=== PATIENT | female | born 1960 | race Caucasian/White ===

== ENCOUNTER 2018-10-04 08:26 | Day surgery (SDC) | payer OTHER, MEDICAID, SELFPAY ==
--- NOTE | 2018-10-04 07:28 | PM.PREOP ---
Pre-operative Note Interval Note Pre-op Check: Yes History & Physical Reviewed by Physician Changes: No
[2018-10-04] MEDS: PROPARACAINE 0.5% OPHTH SOL 2 DROPS EYE-OP (09:03)
[2018-10-04] MEDS: CATARACT EYE COMPOUND (10 DROPS/SYRINGE) 3 DROPS EYE-OP (09:09)
[2018-10-04 09:10] VITALS: BMI 32.5
[2018-10-04 09:27] VITALS: BP 134/87; PULSE 105; RESP 17; TEMP 36.3; O2SAT 95
[2018-10-04] MEDS: CHONDROIDTIN/SOD HYALURONATE 1.05 ML SYRINGE INTRAOCULA ×2 (10:14→10:26)
[2018-10-04] MEDS: MOXIFLOXACIN OPHTH DROPS 3 ML BOTTLE 2 DROPS INJ (10:14)
[2018-10-04] MEDS: PHENYLEPHRINE/LIDOCAINE VIAL (OR) 0.2 ML EYE-OP (10:14)
[2018-10-04] MEDS: TRIAMCINOLONE 50 MG/5 ML VIAL INJ (10:14)
[2018-10-04] MEDS: BALANCED SALT IRRIG SOLN NO.2 15 ML IRRIG.SOLN IRR (10:15)
[2018-10-04] MEDS: OFLOXACIN 0.3% OPHTH 5 ML 2 DROPS EYE-RIGHT (10:15)
[2018-10-04] MEDS: TRYPAN BLUE 0.5 ML SYRINGE INJ (10:15)
[2018-10-04] MEDS: HYALURONATE SODIUM 10 MG/ML SYRINGE INJ (10:15)
[2018-10-04] MEDS: NEOMYCIN/POLY/DEX OPHTH OINT 1 APPLIC EYE-RIGHT (10:15)
[2018-10-04] MEDS: LIDOCAINE 2% 4 ML, BUPIVACAINE 0.5% (PF) 4 ML, HYALURONIDASE 150 UNIT INJ (10:16)
[2018-10-04] MEDS: BALANCED SALT IRRIG SOLN NO.2 500 ML, EPINEPHrine 1 MG IRR (10:16)
[2018-10-04] MEDS: LIDOCAINE 1% W/EPI INJ 20 ML INJ (10:17)
[2018-10-04 11:02] VITALS: BP 136/90; PULSE 91; RESP 16; TEMP 36.9; O2SAT 95
--- NOTE | 2018-10-04 11:03 | SUR.PHASEII ---
Dr. Castro and Sebastian aware pt desires to d/c by taxi, permission given per Dr. Cortes.
--- NOTE | 2018-10-04 12:50 | PM.OP.1 ---
Operative Date/Time/Diagnoses Date of procedure: 10/04/18 Time of procedure: 09:45 Procedure & Clinicians Procedure: y Date of service: October 04, 2018 Preoperative diagnoses: 1. Right mature nuclear sclerotic cortical and posterior subcapsular Cataract 2. Asthma 3. Anxiety Postoperative diagnoses: 1. Cataract mature complex surgery removed with the use of capsular dye and Malyugin ring with posterior chamber toric intraocular lens implant. Procedure: Phacoemulsification with posterior chamber intraocular lens implant Surgeon: Annalisa Cortes MD Complications: None Specimen: None Implant: [id number]+16.0 [place] 102 Blood loss: None Anesthesia: Retrobulbar with monitored standby Anesthesiologist: Kishor Castro M.D. Description of procedure: Patient is a female year old with decreased vision due to cataract which is affecting activities of daily living. She wants surgery to improve vision. She has mature cataract due to a delay while she obtained insurance coverage and it now will require use of capsular dye pupil stretching device and she would like implantation FA astigmatism correcting intraocular lens. 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 She was taken to the operating room and given topical proparacaine drops. Indelible ink ramey were placed at the 90 and 180 degree meridian. She was placed on the operating room table and given IV sedation. A retrobulbar block insert consisting of 6 cc of 2% xylocaine without epinephrine mixed half and half with 0.5% Marcaine with 1 cc of hyaluronidase added is placed between the medial and lateral 1/3 of the inferior orbital rim. Lid akinesia is obtain with 1% xylocaine with epinephrine infiltrated along the lid margin. The eye is manually massaged for 30 sec, prepped using Betadine solution, and draped in the usual sterile fashion. Temporal approach was made, a 1 mm side-port incision was made at the 7:30 position. Phenylephrine 1.5% mixed with 1% xylocaine 0.2 cc was placed into the anterior chamber. An air bubble is then placed and Vision blue dye is placed on the anterior lens surface and under the iris. The air was removed. Viscoat followed by Healon was then placed. A 2.6 mm clear incision with a 2.6 mm blade was placed at the 170 degree meridian. A 7.0 Malyugin ring was inspected and opened into the anterior chamber. The iris was then hooked on all 4 quadrants as it had poorly dilated and was floppy. A 360 degree capsulorrhexis style capsulotomy was then performed with a [facility]. Hydrodelineation and hydrodissection were performed. The phacoemulsification unit is introduced, and sculpting notice used to groove the central lens. It is then removed in chopping mode in the anterior chamber due to the capsular fragility.. Epi nucleus is removed with epinuclear mode and irrigation aspiration was used to remove the peripheral cortex. The posterior capsule is polished. A small amount of peripheral cortex was removed after the intraocular lens insertion. The intraocular lens is selected, inspected, power confirmed, and placed in the posterior chamber after measuring the 102 degree meridian and was placed in that meridian. The pupil was not constricted. The wound was stromally hydrated and tested for leaks, there was none and it was left sutureless. Vigamox 0.1 cc was placed into the anterior chamber. Kenalog 0.2 cc was placed in the superior subconjunctival space. A drop of antibiotic and was placed and the eye was patched and shielded. The patient was stable and returned to the recovery room in excellent condition. Dictated by: Annalisa Cortes MD Copy to: [facility] Same procedure as scheduled: Yes
--- NOTE | 2018-10-04 12:59 | P.OP_ITS ---
Operative Date/Time/Diagnoses Date of procedure: 10/04/18 Time of procedure: 09:45 Procedure & Clinicians Procedure: y Date of service: October 04, 2018 Preoperative diagnoses: 1. Right mature nuclear sclerotic cortical and posterior subcapsular Cataract 2. Asthma 3. Anxiety Postoperative diagnoses: 1. Cataract mature complex surgery removed with the use of capsular dye and Malyugin ring with posterior chamber toric intraocular lens implant. Procedure: Phacoemulsification with posterior chamber intraocular lens implant Surgeon: Annalisa Cortes MD Complications: None Specimen: None Implant: ZCT22+16.0 [employer] 102 Blood loss: None Anesthesia: Retrobulbar with monitored standby Anesthesiologist: Kishor Castro M.D. Description of procedure: Patient is a female year old with decreased vision due to cataract which is affecting activities of daily living. She wants surgery to improve vision. She has mature cataract due to a delay while she obtained insurance coverage and it now will require use of capsular dye pupil stretching device and she would like implantation FA astigmatism correcting intraocular lens. 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 She was taken to the operating room and given topical proparacaine drops. Indelible ink ramey were placed at the 90 and 180 degree meridian. She was placed on the operating room table and given IV sedation. A retrobulbar block insert consisting of 6 cc of 2% xylocaine without epinephrine mixed half and half with 0.5% Marcaine with 1 cc of hyaluronidase added is placed between the medial and lateral 1/3 of the inferior orbital rim. Lid akinesia is obtain with 1% xylocaine with epinephrine infiltrated along the lid margin. The eye is manually massaged for 30 sec, prepped using Betadine solution, and draped in the usual sterile fashion. Temporal approach was made, a 1 mm side-port incision was made at the 7:30 position. Phenylephrine 1.5% mixed with 1% xylocaine 0.2 cc was placed into the anterior chamber. An air bubble is then placed and Vision blue dye is placed on the anterior lens surface and under the iris. The air was removed. Viscoat followed by Healon was then placed. A 2.6 mm clear incision with a 2.6 mm blade was placed at the 170 degree meridian. A 7.0 Malyugin ring was inspected and opened into the anterior chamber. The iris was then hooked on all 4 quadrants as it had poorly dilated and was floppy. A 360 degree capsulorrhexis style capsulotomy was then performed with a [facility]stitome needle [facility]. Hydrodelineation and hydrodissection were performed. The phacoemulsification unit is introduced, and sculpting notice used to groove the central lens. It is then removed in chopping mode in the anterior chamber due to the capsular fragility.. Epi nucleus is removed with epinuclear mode and irrigation aspiration was used to remove the peripheral cortex. The posterior capsule is polished. A small amount of peripheral cortex was removed after the intraocular lens insertion. The intraocular lens is selected, inspected, power confirmed, and placed in the posterior chamber after measuring the 102 degree meridian and was placed in that meridian. The pupil was not constricted. The wound was stromally hydrated and tested for leaks, there was none and it was left sutureless. Vigamox 0.1 cc was placed into the anterior chamber. Kenalog 0.2 cc was placed in the superior subconjunctival space. A drop of antibiotic and was placed and the eye was patched and shielded. The patient was stable and returned to the recovery room in excellent condition. Dictated by: Annalisa Cortes MD Copy to: [facility] Same procedure as scheduled: Yes
== END 2018-10-04 11:15 | disposition home or self-care (01) ==
LOC: OR 08:28
PROVIDERS: PCP Nurse Practitioner Family; Visit Provider Ophthalmology
PROC: (CPT 66982; principal; 2018-10-04 09:45)
DX: H25.11 Age-related nuclear cataract, right eye (principal); I10 Essential (primary) hypertension; J45.909 Unspecified asthma, uncomplicated; F41.9 Anxiety disorder, unspecified; H25.041 Posterior subcapsular polar age-related cataract, right eye
CPT/HCPCS: 66982; J0171; J2704; J3301; J3470; V2787

== ENCOUNTER → 2018-10-12 11:53 | Outpatient (CLI) | payer OTHER, MEDICAID, SELFPAY ==
--- NOTE | 2018-10-13 15:52 | PM.PFT.1 ---
Pulmonary Function Test Referral & Results Date Patient Seen: 10/12/18 Requesting provider: Elena Trujillo Indication: Asthma, cough Results: The spirometry demonstrates an FVC of 3.33 L which is 99% of predicted. The FEV1 was measured at 2.39 L which is 92% of predicted. The FEV1/FVC ratio was 72 which is 91% of predicted. Following the administration of bronchodilator there was no appreciable change. Lung volumes show an SVC of 3.47 L which is 112% of predicted. The diffusing capacity was measured at 26.53 which is 109% of predicted. The maximum voluntary ventilation was normal Interpretation: This study demonstrates normal pulmonary function
== END ==
PROVIDERS: PCP Nurse Practitioner Family; Visit Provider Nurse Practitioner Family
DX: J45.30 Mild persistent asthma, uncomplicated (principal); R05 Cough
CPT/HCPCS: 94060; 94726; 94729

== ENCOUNTER 2018-10-18 08:25 | Day surgery (SDC) | payer OTHER, MEDICAID, SELFPAY ==
--- NOTE | 2018-10-17 16:58 | PM.PREOP ---
Pre-operative Note Interval Note Pre-op Check: Yes History & Physical Reviewed by Physician Changes: No
[2018-10-18] MEDS: PROPARACAINE 0.5% OPHTH SOL 2 DROPS EYE-OP ×2 (08:50→10:09)
[2018-10-18 08:51] VITALS: BMI 32.5
[2018-10-18] MEDS: CATARACT EYE COMPOUND (10 DROPS/SYRINGE) 3 DROPS EYE-OP (08:54)
[2018-10-18 08:56] VITALS: BP 124/88; PULSE 96; RESP 15; TEMP 36.7; O2SAT 92
--- NOTE | 2018-10-18 09:57 | SUR.OPER ---
Supine on eye stretcher, head on extension cradle secured with tape. Arms tucked at sides with blanket. Pillow under knees.
[2018-10-18] MEDS: TRYPAN BLUE 0.5 ML SYRINGE INJ (10:02)
[2018-10-18] MEDS: PHENYLEPHRINE/LIDOCAINE VIAL (OR) 0.2 ML EYE-OP (10:03)
[2018-10-18] MEDS: MOXIFLOXACIN OPHTH DROPS 3 ML BOTTLE 2 DROPS INJ (10:04)
[2018-10-18] MEDS: TRIAMCINOLONE 50 MG/5 ML VIAL INJ (10:04)
[2018-10-18] MEDS: BALANCED SALT IRRIG SOLN NO.2 15 ML IRRIG.SOLN IRR (10:04)
[2018-10-18] MEDS: CHONDROIDTIN/SOD HYALURONATE 1.05 ML SYRINGE INTRAOCULA (10:04)
[2018-10-18] MEDS: HYALURONATE SODIUM 10 MG/ML SYRINGE INJ (10:05)
[2018-10-18] MEDS: CARBACHOL 1.5 ML VIAL INJ (10:05)
[2018-10-18] MEDS: NEOMYCIN/POLY/DEX OPHTH OINT 1 APPLIC EYE-LEFT (10:05)
[2018-10-18] MEDS: BALANCED SALT IRRIG SOLN NO.2 500 ML, EPINEPHrine 1 MG IRR (10:06)
[2018-10-18] MEDS: OFLOXACIN 0.3% OPHTH 5 ML 2 DROPS EYE-LEFT (10:06)
[2018-10-18] MEDS: LIDOCAINE 1% W/EPI INJ 20 ML INJ (10:07)
[2018-10-18] MEDS: LIDOCAINE 2% 4 ML, BUPIVACAINE 0.5% (PF) 4 ML, HYALURONIDASE 150 UNIT INJ (10:07)
[2018-10-18 10:35] VITALS: BP 120/78; PULSE 85; RESP 16; TEMP 36.6; O2SAT 96
[2018-10-18 10:50] VITALS: BP 131/72; PULSE 81; RESP 16; TEMP 36.6; O2SAT 97
--- NOTE | 2018-10-18 11:56 | PM.OP.1 ---
Operative Date/Time/Diagnoses Date of procedure: 10/18/18 Time of procedure: 09:57 Procedure & Clinicians Procedure: Preoperative diagnoses: 1. Complex surgery with use of capsular dye. 2. Mature or advanced nuclear sclerotic and cortical cataract with poor visibility of the anterior capsule increasing surgical risks of complications. 3. Astigmatism which she elects to correct with a Toric IOL. 4. Poor pupillary dilation of unknown cause with need for Malyugin ring. Postoperative diagnoses: 1. Complex surgery with use of capsular dye, Malyguin ring and placement of a posterior chamber toric intraocular lens implant. Surgeon: Annalisa Cortes MD Complications: none Specimen: None Implant:[id number]+18.5 Blood loss: None Anesthesia: Retrobulbar with monitored standby. Dictated by: Annalisa Cortes MD Copy to: [facility] Postoperative diagnoses: 1. Cataract removed with use of capsular dye,pupillary retention device with placement of a toric posterior chamber intraocular lens. 2. Astigmatism which she elected to correct with a toric IOL. Procedure: Phacoemulsification with posterior chamber intraocular lens implant, complex with the use of capsular dye Malyugin ring. Surgeon: Annalisa Cortes MD Complications: None Specimen: None Implant:[id number]+18.5 [place] 091. Blood loss: None Anesthesia: Retrobulbar with monitored standby Description of procedure: Patient has presented with decreased vision due to advanced cataract which is affecting activities of daily living. The patient wants surgery to improve vision. The patient was taken to the oerating room. Proparacaine drops were placed and indelible ink ramey were made at the 90 and 180 degree position. The patient was placed on the operating room table, monitored and given IV sedation. A retrobulbar block consisting of 6 cc of 2% xylocaine without epinephrine mixed half and half with 0.5% Marcaine with 1 cc of hyaluronidase added is placed between the medial and lateral 1/3 of the inferior orbital rim. Lid akinesia is obtain with 1% xylocaine with epinephrine infiltrated along the lid margin. The eye is manually massaged for 30 sec, prepped using Betadine solution, and draped in the usual sterile fashion.A temporal approach was made, a 1 mm side-port incision was performed 90 degrees from the planned corneal wound. Phenylephrine 1.5% mixed with 1% xylocaine 0.2 cc was placed into the anterior chamber. An air bubble was placed and Visudyne dye was placed to improve visibility of the anterior capsule. The dye was irrigated out to reduce bubbles. Viscoat followed by Lex was then placed. A 2.6 mm clear incision with a 2.6 mm blade was placed. A Malyugin ring of 7.0 mm was inspected and opened in the anterior chamber.Each quadrant of the iris was sequentially hooked and the device centered in the pupil. A 360 degree capsulorrhexis style capsulotomy was then performed with a cystitome needle on a Healon. Hydrodelineation and hydrodissection were performed. The phacoemulsification unit is introduced, and sculpting notice used to groove the central lens. It is then removed in chopping mode. Epi nucleus is removed with epinuclear mode and irrigation aspiration was used to remove the peripheral cortex. The posterior capsule is polished. The intraocular lens is selected, inspected, power confirmed, and placed in the posterior chamber at the desired meridian and confirmed with multiople markers. The pupil was not constricted. The wound was stromally hydrated and tested for leaks, there was none and was left sutureless. Vigamox 0.1 cc was placed into the anterior chamber. Kenalog 0.2 cc was placed in the superior subconjunctival space. A drop of antibiotic and was placed and the eye was patched and shielded. The patient was stable and returned to the recovery room in excellent condition. Dictated by: Annalisa Cortes MD Copy to: [facility] C Same procedure as scheduled: Yes
--- NOTE | 2018-10-18 12:01 | P.OP_ITS ---
Operative Date/Time/Diagnoses Date of procedure: 10/18/18 Time of procedure: 09:57 Procedure & Clinicians Procedure: Preoperative diagnoses: 1. Complex surgery with use of capsular dye. 2. Mature or advanced nuclear sclerotic and cortical cataract with poor visibility of the anterior capsule increasing surgical risks of complications. 3. Astigmatism which she elects to correct with a Toric IOL. 4. Poor pupillary dilation of unknown cause with need for Malyugin ring. Postoperative diagnoses: 1. Complex surgery with use of capsular dye, Malyguin ring and placement of a posterior chamber toric intraocular lens implant. Surgeon: Annalisa Cortes MD Complications: none Specimen: None Implant:[id number]+18.5 Blood loss: None Anesthesia: Retrobulbar with monitored standby. Dictated by: Annalisa Cortes MD Copy to: [facility] Postoperative diagnoses: 1. Cataract removed with use of capsular dye,pupillary retention device with placement of a toric posterior chamber intraocular lens. 2. Astigmatism which she elected to correct with a toric IOL. Procedure: Phacoemulsification with posterior chamber intraocular lens implant , complex with the use of capsular dye Malyugin ring. Surgeon: Annalisa Cortes MD Complications: None Specimen: None Implant:[id number]+18.5 [place] 091. Blood loss: None Anesthesia: Retrobulbar with monitored standby Description of procedure: Patient has presented with decreased vision due to advanced cataract which is affecting activities of daily living. The patient wants surgery to improve vision. The patient was taken to the oerating room. Proparacaine drops were placed and indelible ink ramey were made at the 90 and 180 degree position. The patient was placed on the operating room table, monitored and given IV sedation. A retrobulbar block consisting of 6 cc of 2% xylocaine without epinephrine mixed half and half with 0.5% Marcaine with 1 cc of hyaluronidase added is placed between the medial and lateral 1/3 of the inferior orbital rim. Lid akinesia is obtain with 1% xylocaine with epinephrine infiltrated along the lid margin. The eye is manually massaged for 30 sec, prepped using Betadine solution, and draped in the usual sterile fashion.A temporal approach was made, a 1 mm side-port incision was performed 90 degrees from the planned corneal wound. Phenylephrine 1.5% mixed with 1% xylocaine 0.2 cc was placed into the anterior chamber. An air bubble was placed and Visudyne dye was placed to improve visibility of the anterior capsule. The dye was irrigated out to reduce bubbles. Viscoat followed by Lex was then placed. A 2.6 mm clear incision with a 2.6 mm blade was placed. A Malyugin ring of 7.0 mm was inspected and opened in the anterior chamber.Each quadrant of the iris was sequentially hooked and the device centered in the pupil. A 360 degree capsulorrhexis style capsulotomy was then performed with a cystitome needle on a Healon. Hydrodelineation and hydrodissection were performed. The phacoemulsification unit is introduced, and sculpting notice used to groove the central lens. It is then removed in chopping mode. Epi nucleus is removed with epinuclear mode and irrigation aspiration was used to remove the peripheral cortex. The posterior capsule is polished. The intraocular lens is selected, inspected, power confirmed, and placed in the posterior chamber at the desired meridian and confirmed with multiople markers. The pupil was not constricted. The wound was stromally hydrated and tested for leaks, there was none and was left sutureless. Vigamox 0.1 cc was placed into the anterior chamber. Kenalog 0.2 cc was placed in the superior subconjunctival space. A drop of antibiotic and was placed and the eye was patched and shielded. The patient was stable and returned to the recovery room in excellent condition. Dictated by: Annalisa Cortes MD Copy to: [facility] Same procedure as scheduled: Yes
--- NOTE | 2018-10-18 12:38 | P.OP.PRE_ITS ---
Pre-operative Note Interval Note Changes: No
--- NOTE | 2018-10-18 12:38 | PM.PREOP ---
Pre-operative Note Interval Note Changes: No
== END 2018-10-18 11:00 | disposition home or self-care (01) ==
LOC: OR 08:26
PROVIDERS: PCP Nurse Practitioner Family; Visit Provider Ophthalmology
PROC: (CPT 66982; principal; 2018-10-18 09:45)
DX: H25.12 Age-related nuclear cataract, left eye (principal); H57.09 Other anomalies of pupillary function; H52.202 Unspecified astigmatism, left eye; I10 Essential (primary) hypertension; J45.909 Unspecified asthma, uncomplicated
CPT/HCPCS: 66982; J0171; J2250; J2704; J3010; J3301; J3470; V2787

== ENCOUNTER → 2018-10-26 11:29 | Outpatient (CLI) | payer OTHER, MEDICAID, SELFPAY ==
--- NOTE | 2018-10-26 | DI.MG.S_ITS ---
BILATERAL DIGITAL SCREENING MAMMOGRAM 3D/2D WITH CAD: 10/26/2018 CLINICAL: Routine screening. Comparison is made to exams dated: 11/17/2016 mammogram, 06/11/2015 mammogram, and 10/24/2013 mammogram - [facility]. The tissue of both breasts is heterogeneously dense. This may lower the sensitivity of mammography. Current study was also evaluated with a Computer Aided Detection (CAD) system. There are benign vascular calcifications in both breasts. No significant masses, calcifications, or other findings are seen in either breast. There has been no significant interval change. IMPRESSION: There is no mammographic evidence of malignancy. A 1 year screening mammogram is recommended. This exam was interpreted at Station ID: [id number]. NOTE: For mammograms, a report in lay terms will be sent to the patient. Approximately 15% of breast malignancies will not be visualized mammographically. In the management of a palpable breast mass, a negative mammogram must not discourage biopsy of a clinically suspicious lesion. Electronically Signed By: Kristian copeland/alicia:10/27/2018 11:19:36 letter sent: Normal Exam ACR BI-RADS Category 2: Benign Finding(s) 3342F
== END ==
PROVIDERS: PCP Nurse Practitioner Family; Visit Provider Nurse Practitioner Family
DX: Z12.31 Encounter for screening mammogram for malignant neoplasm of breast (principal)
CPT/HCPCS: 77063; 77067

== ENCOUNTER → 2019-10-03 12:49 | Outpatient (CLI) | payer OTHER, MEDICAID, SELFPAY ==
--- NOTE | 2019-10-03 | DI.US.S_ITS ---
PROCEDURE: US PELVIC COMPLETE INDICATIONS: FAMILY HISTORY OF MALIGNANT NEOPLASM OF OVARY TECHNIQUE: Real-time scanning was performed of the pelvic organs, with image documentation. Additional endovaginal scanning was necessary due to incomplete visualization of the adnexal and endometrial structures by transabdominal scanning. COMPARISON: None. FINDINGS: Transabdominal scanning: Limited scanning through the kidneys shows no hydronephrosis. No pathologic free abdominal or pelvic fluid. Endovaginal scanning: Uterus: Prior hysterectomy. Ovaries: Right ovary not visualized. Normal left ovary measuring 1.9 x 1.0 x 0.5 cm. IMPRESSION: Normal right ovary and the left ovary is not visualized. Dictated by: Kishor CHARLES Interpreted: Damon Correa MD on 10/03/2019 at 15:34 Approved by: Damon Correa M.D. on 10/03/2019 at 17:20
== END ==
PROVIDERS: PCP Family Medicine; Visit Provider Family Medicine
DX: Z80.41 Family history of malignant neoplasm of ovary (principal); Z90.710 Acquired absence of both cervix and uterus
CPT/HCPCS: 76830; 76856

== ENCOUNTER → 2019-10-30 11:52 | Outpatient (CLI) | payer OTHER, MEDICAID, SELFPAY ==
--- NOTE | 2019-10-30 | DI.MG.S_ITS ---
BILATERAL DIGITAL SCREENING MAMMOGRAM 3D/2D WITH CAD: 10/30/2019 CLINICAL: Routine screening. Comparison is made to exams dated: 10/26/2018 mammogram - [facility], 11/17/2016 mammogram, and 06/11/2015 mammogram - [facility]. The tissue of both breasts is heterogeneously dense. This may lower the sensitivity of mammography. Current study was also evaluated with a Computer Aided Detection (CAD) system. There are benign vascular calcifications in both breasts. No significant masses, calcifications, or other findings are seen in either breast. There has been no significant interval change. IMPRESSION: There is no mammographic evidence of malignancy. A 1 year screening mammogram is recommended. This exam was interpreted at Station ID: [id number]. NOTE: For mammograms, a report in lay terms will be sent to the patient. Approximately 15% of breast malignancies will not be visualized mammographically. In the management of a palpable breast mass, a negative mammogram must not discourage biopsy of a clinically suspicious lesion. Electronically Signed By: You vargas/alicia:10/30/2019 15:04:18 letter sent: Normal Exam ACR BI-RADS Category 2: Benign Finding(s) 3342F
== END ==
PROVIDERS: PCP Family Medicine; Visit Provider Family Medicine
DX: Z12.31 Encounter for screening mammogram for malignant neoplasm of breast (principal)
CPT/HCPCS: 77063; 77067

== ENCOUNTER 2021-10-02 16:12 | Emergency (ER) | payer OTHER, MEDICAID, SELFPAY ==
[2021-10-02] VITALS (15 sets, daily range): BP systolic 99–138; BP diastolic 50–89; PULSE 100–121; RESP 18–25; TEMP 37.2; O2SAT 94–98; BMI 30.9
[2021-10-02 17:09] LABS: Add Manual Diff / Slide Review NO; Basophils Absolute Auto 100 /uL (0-100); Basophils Percent Auto 0.4 % (0-2); Eosinophils Absolute Auto 0 /uL (0-450); Hematocrit 36.3 % (36-46); Hemoglobin 12.3 g/dL (12.0-16.0); Lymphocytes Absolute Auto 1800 /uL (1100-4500); Mean Corpuscular HGB Conc 33.8 % (30-36); Mean Corpuscular Hemoglobin 34.4 PG (26-34); Mean Corpuscular Volume 101.8 fL (80-100); Monocytes Absolute Auto 1300 /uL (0-900); Monocytes Percent Auto 10.2 % (3-14); Neutrophils Absolute Auto 9900 /uL (1500-7000); Neutrophils Percent Auto 75.4 % (50-75); Platelet Count 217 X10^3/uL (150-400); Red Blood Cell Count 3.57 X10^6/uL (4.0-5.2); Red Cell Distribution Width 14.2 % (11.6-14.8); White Blood Cell Count 13.2 X10^3/uL (4.5-11.0)
[2021-10-02 17:17] LABS: INR 1.7 (0.9-1.3); Prothrombin Time 19.1 SECONDS (10.1-12.7)
[2021-10-02 17:19] LABS: PTT Partial Thromboplastin Tim 35 SECONDS (26.4-36.2)
[2021-10-02 17:21] LABS: Alanine Aminotransferase 52 IU/L (<35); Albumin 3.4 g/dL (3.5-5.0); Albumin Globulin Ratio 0.7 (1.0-2.8); Alkaline Phosphatase 148 U/L (38-126); Aspartate Aminotransferase 158 IU/L (14-36); Bilirubin Total 2.4 mg/dL (0.2-1.3); Blood Urea Nitrogen 9 mg/dL (7-17); Calcium 8.3 mg/dL (8.4-10.2); Carbon Dioxide 27 mmol/L (22-32); Chloride 94 mmol/L (98-107); Estimated Glomerular Filt Rate > 60.0 mL/min (>60); Globulin 4.9 g/dL (1.7-4.1); Glucose 134 mg/dL (80-110); HEMOLYSIS < 15 (0-50); Potassium 3.2 mmol/L (3.4-5.1); Sodium 131 mmol/L (137-145); Total Protein 8.3 g/dL (6.3-8.2)
[2021-10-02 17:39] LABS: Appearance Urine UA CLEAR; Bilirubin Urine UA NEGATIVE (NEGATIVE); Color Urine UA YELLOW; Glucose Urine UA NEGATIVE (Negative); Ketones Urine UA 1+ (NEGATIVE); Leukocyte Esterase Urine UA NEGATIVE (NEGATIVE); Nitrite Urine UA NEGATIVE (Negative); Occult Blood Urine UA TRACE-LYSED (Negative); Protein Urine UA TRACE (Negative)
[2021-10-02 17:45] LABS: RBC Urine 0-1/HPF (0-5/HPF); Squamous Epithelial Cell Urine 1-5 /HPF (0-5/HPF); WBC Urine 1-5/HPF (0-5/HPF); pH Urine UA 6.5 (4.5-8.0)
[2021-10-02 17:46] LABS: Bacteria Urine Moderate (10-30); Culture Indicated Urine Specimen Cultured
[2021-10-02] MEDS: PANTOPRAZOLE 40 MG VIAL IV (17:55)
[2021-10-02 18:11] LABS: Ethanol (ETOH) 17 mg/dL
--- NOTE | 2021-10-02 18:11 | ED.GIBLEED ---
HPI - GI Bleed General Chief complaint: GI Bleed Stated complaint: Throwing up blood Time Seen by Provider: 10/02/21 17:46 Source: patient Mode of arrival: Ambulatory Limitations: no limitations History of Present Illness HPI Narrative: 60-year-old female nonsmoker with extensive alcohol history presents with a chief complaint of 24 hours of bright red blood in her vomit. Additionally, she complains of multiple episodes of dark and tarry stools. She denies any fever or chills. She has been noticing an increased size of her abdomen over the past few days as well. Though she has been a heavy drinker for quite some time she has never been diagnosed with liver disease and has no imaging of her liver as far she knows. She drinks upwards of 6-10 alcoholic beverages daily and has had withdrawals in the past. Her last drink was about 24 hours ago when she is feeling a bit shaky and agitated. Related Data Home Medications Medication Instructions Recorded Confirmed albuterol sulfate 90 mcg/actuation 2 puff INHALATION BID 10/04/18 10/18/18 aerosol inhaler ascorbic acid (vitamin C) 500 mg 1,000 mg PO BEDTIME 10/04/18 10/18/18 tablet (Vitamin C) calcium carbonate 500 mg calcium 1,000 mg PO DAILY 10/04/18 10/18/18 (1,250 mg) tablet (Calcium 500) cholecalciferol (vitamin D3) 10 400 unit PO DAILY 10/04/18 10/18/18 mcg (400 unit) tablet (Vitamin D3) hydrochlorothiazide 12.5 mg capsule 12.5 mg PO BEDTIME 10/04/18 10/18/18 multivitamin 1 tab PO DAILY 10/04/18 10/18/18 omega 1-bpt-mob-fish oil 1,000 mg 1,000 mg PO BEDTIME 10/04/18 10/18/18 (120 mg-180 mg) capsule (Fish Oil) acetaminophen 325 mg capsule 325 mg PO Q4H PRN 10/18/18 10/18/18 (Tylenol) Allergies Allergy/AdvReac Type Severity Reaction Status Date / Time No Known Drug Allergies Allergy Verified 10/02/21 16:30 Review of Systems Review of Systems Narrative: GENERAL: Denies chills, fatigue, malaise, fever, sweats. HEENT: Denies sinus pain, ear pain, sore throat, difficulty swallowing, dizziness. RESPIRATORY: Denies dyspnea, cough, wheezing, hemoptysis, sputum. CARDIOVASCULAR: Denies chest pain, palpitations, orthopnea, edema, GASTROINTESTINAL: See HPI : Denies dysuria, frequency, incontinence, hematuria, urinary retention. MUSCULOSKELETAL: denies weakness, joint pain, or bony pain SKIN: Denies rash, skin lesions, or other NEUROLOGIC: Denies weakness, headache, numbness, change in speech, confusion, seizures, incoordination. PSYCHIATRIC: No concerning psychosocial issues. 12 point review of systems is negative except for those stated above Patient History Social History Smoking Status: Never smoker Smoking Status: Never smoker alcohol intake frequency: 3 or more drinks per day Substance Use Type: does not use Exam Narrative Exam Narrative: GENERAL: [60 year old patient appears stated age. Well-developed patient, in mild distress. Agitated, a bit irritable, moderately tremulous HEAD: Atraumatic. Normocephalic. EYES: Pupils equal round and reactive. Extraocular motions intact. No scleral icterus. No injection or drainage. ENT: Nose without bleeding, purulent drainage. Throat without erythema, tonsillar hypertrophy or exudate. Airway patent. NECK: Trachea midline. Non tender CARDIOVASCULAR: Regular rate and rhythm without murmurs, gallops, or rubs. RESPIRATORY: Clear to auscultation. Breath sounds equal bilaterally. No wheezes, rales, or rhonchi. GASTROINTESTINAL: Abdomen soft, moderate generalized ascites, no erythema or warmth EXTREMITIES: No edema or joint tenderness. BACK: Nontender without deformity or crepitance. No flank tenderness. NEURO: AOx3. SKIN: No rash or erythema of visible areas Initial Vital Signs Initial Vital Signs: Vital Signs Temperature 99 F 10/02/21 16:30 Pulse Rate 120 H 10/02/21 16:30 Respiratory Rate 18 10/02/21 16:30 Blood Pressure 138/74 10/02/21 16:30 Pulse Oximetry 96 10/02/21 16:30 Course Course Course Narrative: Michelle-Blatchford Bleeding Score (GBS) from [email or web address] on 10/02/2021 All calculations should be rechecked by clinician prior to use RESULT SUMMARY: 2 points A GBS greater than zero suggests a ?High Risk? GI bleed that is likely to require ?medical intervention?: transfusion, endoscopy, or surgery. A higher GBS also correlated with a higher likelihood of needing intervention (scores >= are associated with >50% risk of needing intervention) INPUTS: Hemoglobin ?> 12.3 g/dL BUN ?> 9 mg/dL Initial systolic BP ?> 129 mm Hg Sex ?> 1 = Female Heart rate >=00 ?> 1 = Yes Melena present ?> 1 = Yes Recent syncope ?> 0 = No Hepatic disease history ?> 0 = No Cardiac failure present ?> 0 = No CIWA-Ar for Alcohol Withdrawal from [employer] on 10/02/2021 All calculations should be rechecked by clinician prior to use RESULT SUMMARY: 15 points Patients with scores >= may require medication for withdrawal. INPUTS: Nausea/vomiting ?> 5 = (More severe symptoms) Tremor ?> 4 = Moderate, with patient's arms extended Paroxysmal sweats ?> 2 = (More severe symptoms) Anxiety ?> 0 = No anxiety, at ease Agitation ?> 4 = Moderately fidgety and restless Tactile disturbances ?> 0 = None Auditory disturbances ?> 0 = Not present Visual disturbances ?> 0 = Not present Headache/fullness in head ?> 0 = Not Present Orientation/clouding of sensorium ?> 0 = Oriented, can do serial additions Orders Ordered: ED Orders 10/02/21 16:45 Urinalysis and Microscopic Stat Urine Culture Stat 10/02/21 16:50 Complete Blood Count AUTO DIFF Stat Comprehensive Metabolic Panel Stat Ethanol (ETOH) Stat Magnesium Stat Partial Thromboplastin Time Stat Prothrombin Time INR Stat Type and Screen Stat 10/02/21 18:43 CT abdomen pelvis w con Stat 10/02/21 18:55 Hemoglobin and Hematocrit Stat 10/02/21 19:33 COVID19 - ADMIT (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 swab/PCR) Stat Octreotide Acetate 500 mcg/ (Sodium Chloride) 101 mls @ 5.05 mls/hr IV CONT NICK; Protocol Last Admin: 10/02/21 19:34 Dose: 25 mcg/hr, 5.05 mls/hr Documented by: KBRYERS Discontinued Medications POTASSIUM CHLORIDE IN WATER (Potassium Cl 10 Meq/100 Ml Janel) 10 meq in 100 mls @ 100 mls/hr IV Q1H NICK Stop: 10/02/21 22:14 Last Admin: 10/02/21 22:13 Dose: 100 mls/hr Documented by: Infusion: 10/02/21 21:49 Dose: 100 mls/hr Documented by: Admin: 10/02/21 20:49 Dose: 100 mls/hr Documented by: Infusion: 10/02/21 19:21 Dose: 100 mls/hr Documented by: Admin: 10/02/21 18:21 Dose: 100 mls/hr Documented by: ALEJANDRA Ceftriaxone Sodium 2,000 mg/ (Sodium Chloride) 100 mls @ 200 mls/hr IV NOW ONE Stop: 10/02/21 18:42 Last Infusion: 10/02/21 21:00 Dose: 0 mls/hr Documented by: Admin: 10/02/21 19:35 Dose: 200 mls/hr Documented by: ALEJANDRA Octreotide Acetate (Octreotide 100 Mcg/Ml Vial) 50 mcg IV NOW ONE Stop: 10/02/21 18:42 Last Admin: 10/02/21 19:33 Dose: 50 mcg Documented by: ALEJANDRA Ondansetron HCl (Ondansetron 4 Mg/2 Ml Inj) 4 mg IV NOW ONE Stop: 10/02/21 19:41 Last Admin: 10/02/21 19:43 Dose: 4 mg Documented by: ALEJANDRA Pantoprazole Sodium (Pantoprazole 40 Mg Vial) 40 mg IV NOW ONE Stop: 10/02/21 17:47 Last Admin: 10/02/21 17:55 Dose: 40 mg Documented by: ALEJANDRA Pantoprazole Sodium (Pantoprazole 40 Mg Vial) 80 mg IV NOW ONE Stop: 10/02/21 18:42 Last Admin: 10/02/21 19:33 Dose: 80 mg Documented by: ALEJANDRA Phenobarbital (Phenobarbital 65 Mg/Ml Vial) 260 mg IV NOW ONE Stop: 10/02/21 18:43 Last Admin: 10/02/21 19:34 Dose: 260 mg Documented by: ALEJANDRA Reevaluation(s) Reevaluation #1: improved symptoms after Phenobarb Consultations Consultation #1: call to Gen Surg ([place]) given high likelihood of varices and our inability to band patient will need transfer Consultation #2: call to GI at [facility] (Krissy), 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, happy with our diagnostics and therapeutic approach the [facility] Consultation #3: 2006 - [facility] Hospitalist paged, happy to accept Vital Signs Vital signs: Vital Signs - 8 hr 10/02/21 16:30 10/02/21 18:01 10/02/21 18:30 Temperature 99 F Pulse Rate 120 H 110 H 111 H Respiratory Rate 18 18 23 Blood Pressure 138/74 129/81 125/58 L Pulse Oximetry 96 94 10/02/21 19:00 10/02/21 19:34 10/02/21 19:35 Temperature Pulse Rate 115 H 115 H 115 H Respiratory Rate 22 23 Blood Pressure 115/53 L 132/70 Pulse Oximetry 95 98 98 10/02/21 20:18 10/02/21 20:20 10/02/21 20:30 Temperature Pulse Rate 121 H 118 H 112 H Respiratory Rate 25 H 24 Blood Pressure 115/89 101/57 L Pulse Oximetry MDM - GI Bleed Lab Data Result diagrams: 10/02/21 18:55 10/02/21 16:50 Labs: Lab Results 10/02/21 10/02/21 10/02/21 Range/Units 16:45 16:50 16:50 WBC 13.2 H (4.5-11.0) X10^3/uL RBC 3.57 L (4.0-5.2) X10^6/uL Hgb 12.3 (12.0-16.0) g/dL Hct 36.3 (36-46) % MCV 101.8 H (80-100) fL MCH 34.4 H (26-34) PG MCHC 33.8 (30-36) % RDW 14.2 (11.6-14.8) % Plt Count 217 (150-400) X10^3/uL Neut % (Auto) 75.4 H (50-75) % Lymph % (Auto) 14.0 L (25-40) % Richardson % (Auto) 10.2 (3-14) % Eos % (Auto) 0.0 L (2-4) % Baso % (Auto) 0.4 (0-2) % Neut # (Auto) 9900 H (3205-6833) /uL Lymph # (Auto) 1800 (7525-1978) /uL Richardson # (Auto) 1300 H (0-900) /uL Eos # (Auto) 0 (0-450) /uL Baso # (Auto) 100 (0-100) /uL PT 19.1 H (10.1-12.7) SECONDS INR 1.7 H (0.9-1.3) APTT 35 (26.4-36.2) SECONDS Sodium (137-145) mmol/L Potassium (3.4-5.1) mmol/L Chloride (98-107) mmol/L Carbon Dioxide (22-32) mmol/L BUN (7-17) mg/dL Creatinine (0.52-1.04) mg/dL Estimated GFR (>60) mL/min BUN/Creatinine Ratio (6-22) Glucose (80-110) mg/dL Calcium (8.4-10.2) mg/dL Magnesium (1.6-2.3) mg/dL Total Bilirubin (0.2-1.3) mg/dL AST (14-36) IU/L ALT (<35) IU/L Alkaline Phosphatase (38-126) U/L Total Protein (6.3-8.2) g/dL Albumin (3.5-5.0) g/dL Globulin (1.7-4.1) g/dL Albumin/Globulin Ratio (1.0-2.8) Urine Color Yellow Urine Appearance Clear Urine pH 6.5 (4.5-8.0) Ur Specific Gilman 1.010 (1.000-1.035) Urine Protein Trace H (Negative) Urine Glucose (UA) Negative (Negative) g/dL Urine Ketones 1+ H (NEGATIVE) Urine Occult Blood Trace-lysed (Negative) Urine Nitrate Negative (Negative) Urine Bilirubin Negative (NEGATIVE) Urine Urobilinogen 4.0 H (0.2) E.U./dL Ur Leukocyte Esterase Negative (NEGATIVE) Urine RBC 0-1/hpf (0-5/HPF) Urine WBC 1-5/hpf (0-5/HPF) Ur Squamous Epith Cells 1-5 /hpf (0-5/HPF) Urine Bacteria Moderate (10-30) H (None) Ur Culture Indicated? Specimen cultured Ethyl Alcohol ( - 10) mg/dL SARS-CoV-2 (PCR) (Negative) Blood Type Antibody Screen 10/02/21 10/02/21 10/02/21 Range/Units 16:50 16:50 16:50 WBC (4.5-11.0) X10^3/uL RBC (4.0-5.2) X10^6/uL Hgb (12.0-16.0) g/dL Hct (36-46) % MCV (80-100) fL MCH (26-34) PG MCHC (30-36) % RDW (11.6-14.8) % Plt Count (150-400) X10^3/uL Neut % (Auto) (50-75) % Lymph % (Auto) (25-40) % Richardson % (Auto) (3-14) % Eos % (Auto) (2-4) % Baso % (Auto) (0-2) % Neut # (Auto) (1793-9804) /uL Lymph # (Auto) (9250-9650) /uL Richardson # (Auto) (0-900) /uL Eos # (Auto) (0-450) /uL Baso # (Auto) (0-100) /uL PT (10.1-12.7) SECONDS INR (0.9-1.3) APTT (26.4-36.2) SECONDS Sodium 131 L (137-145) mmol/L Potassium 3.2 L (3.4-5.1) mmol/L Chloride 94 L (98-107) mmol/L Carbon Dioxide 27 (22-32) mmol/L BUN 9 (7-17) mg/dL Creatinine 0.36 L (0.52-1.04) mg/dL Estimated GFR > 60.0 (>60) mL/min BUN/Creatinine Ratio 25.0 H (6-22) Glucose 134 H (80-110) mg/dL Calcium 8.3 L (8.4-10.2) mg/dL Magnesium (1.6-2.3) mg/dL Total Bilirubin 2.4 H (0.2-1.3) mg/dL AST 158 H (14-36) IU/L ALT 52 H (<35) IU/L Alkaline Phosphatase 148 H (38-126) U/L Total Protein 8.3 H (6.3-8.2) g/dL Albumin 3.4 L (3.5-5.0) g/dL Globulin 4.9 H (1.7-4.1) g/dL Albumin/Globulin Ratio 0.7 L (1.0-2.8) Urine Color Urine Appearance Urine pH (4.5-8.0) Ur Specific Gilman (1.000-1.035) Urine Protein (Negative) Urine Glucose (UA) (Negative) g/dL Urine Ketones (NEGATIVE) Urine Occult Blood (Negative) Urine Nitrate (Negative) Urine Bilirubin (NEGATIVE) Urine Urobilinogen (0.2) E.U./dL Ur Leukocyte Esterase (NEGATIVE) Urine RBC (0-5/HPF) Urine WBC (0-5/HPF) Ur Squamous Epith Cells (0-5/HPF) Urine Bacteria (None) Ur Culture Indicated? Ethyl Alcohol 17 H ( - 10) mg/dL SARS-CoV-2 (PCR) (Negative) Blood Type A Positive Antibody Screen Negative 10/02/21 10/02/21 10/02/21 Range/Units 16:50 18:55 19:33 WBC (4.5-11.0) X10^3/uL RBC (4.0-5.2) X10^6/uL Hgb 12.1 (12.0-16.0) g/dL Hct 35.6 L (36-46) % MCV (80-100) fL MCH (26-34) PG MCHC (30-36) % RDW (11.6-14.8) % Plt Count (150-400) X10^3/uL Neut % (Auto) (50-75) % Lymph % (Auto) (25-40) % Richardson % (Auto) (3-14) % Eos % (Auto) (2-4) % Baso % (Auto) (0-2) % Neut # (Auto) (7176-9175) /uL Lymph # (Auto) (0456-3686) /uL Richardson # (Auto) (0-900) /uL Eos # (Auto) (0-450) /uL Baso # (Auto) (0-100) /uL PT (10.1-12.7) SECONDS INR (0.9-1.3) APTT (26.4-36.2) SECONDS Sodium (137-145) mmol/L Potassium (3.4-5.1) mmol/L Chloride (98-107) mmol/L Carbon Dioxide (22-32) mmol/L BUN (7-17) mg/dL Creatinine (0.52-1.04) mg/dL Estimated GFR (>60) mL/min BUN/Creatinine Ratio (6-22) Glucose (80-110) mg/dL Calcium (8.4-10.2) mg/dL Magnesium 1.8 (1.6-2.3) mg/dL Total Bilirubin (0.2-1.3) mg/dL AST (14-36) IU/L ALT (<35) IU/L Alkaline Phosphatase (38-126) U/L Total Protein (6.3-8.2) g/dL Albumin (3.5-5.0) g/dL Globulin (1.7-4.1) g/dL Albumin/Globulin Ratio (1.0-2.8) Urine Color Urine Appearance Urine pH (4.5-8.0) Ur Specific Gilman (1.000-1.035) Urine Protein (Negative) Urine Glucose (UA) (Negative) g/dL Urine Ketones (NEGATIVE) Urine Occult Blood (Negative) Urine Nitrate (Negative) Urine Bilirubin (NEGATIVE) Urine Urobilinogen (0.2) E.U./dL Ur Leukocyte Esterase (NEGATIVE) Urine RBC (0-5/HPF) Urine WBC (0-5/HPF) Ur Squamous Epith Cells (0-5/HPF) Urine Bacteria (None) Ur Culture Indicated? Ethyl Alcohol ( - 10) mg/dL SARS-CoV-2 (PCR) Negative (Negative) Blood Type Antibody Screen Imaging Data CT scan - abdomen/pelvis: Radiologist's Impression: Therese Carbajal??60??F??1960 ? Allergy/Adv: No Known Drug Allergies (More??) Close Abdomen/Pelvis CT (Signed) Ezequiel Talamantes - 10/02/21 Mammogram Screening (Signed) You Tellez - 10/30/19 Pelvis Ultrasound (Signed) Damon Correa - 10/03/19 Mammogram Screening (Signed) Kristian López - 10/26/18 Launch?[address] [address] [address] Scan Report Signed Patient: Therese Carbajal MR#: [id number] : 1960 Acct:[id number] Age/Sex: 60 / F Date of Service: 10/02/21 Loc: ED Accession Number: [id number] ?? Procedure: CT abdomen pelvis w con Ordering Provider: Richard Vigil D.O. PROCEDURE:? CT ABDOMEN PELVIS W CON ? INDICATIONS:? abdominal pain, liver history ? TECHNIQUE:? After the administration of intravenous contrast, axial sections acquired from the lung bases to the pubic symphysis.? Coronal and sagittal reformats were performed.? For radiation dose reduction, the following was used:? automated exposure control, adjustment of mA and/or kV according to patient size.? ? COMPARISON:? None. ? FINDINGS: ABDOMEN:? Lung bases:? Bibasilar scarring/atelectasis without focal consolidation. Heart:? No pericardial effusion. Normal in size.? ? Liver:? Cirrhosis of the liver is seen.? There is diffuse heterogeneous appearance of the parenchyma without definite focal lesion however confluent or diffuse metastatic/neoplastic lesions cannot be excluded.? Recanalization of the umbilical vein Gallbladder:? Mildly distended.? No radiopaque calculi seen. Bile ducts: Normal. Pancreas: Normal.? Spleen:? Borderline enlarged.? There are perisplenic varices Adrenals: Normal. Kidneys and Ureters:? Normal. Stomach and duodenum:? Small hiatal hernia.? There are numerous gastrohepatic varices.? Gastroesophageal varices also seen. Bowel:? No evidence of bowel obstruction.? There is scattered colonic diverticula without definite focal diverticulitis. Other:? Diffuse moderate ascites Abdominal nodes:? Normal. Aorta and IVC: Normal in size.? ? Ventral wall: Normal. ? PELVIS:? ? Bladder and reproductive: Unremarkable.? Inguinal region: No hernia.? Pelvic nodes: Normal.? ? Bones:? No suspicious bony lesions.? No vertebral body compression fractures. Diffuse spondylytic changes and facet disease. ? ? IMPRESSION: ? Cirrhosis of the liver.? Numerous varices in mild splenomegaly suggesting portal venous hypertension.? Ill-defined hypoattenuating foci throughout the liver which could reflect advanced parenchymal disease/regenerative or siderotic nodules, however cannot exclude confluent metastatic or neoplastic lesions.? Further evaluation with liver protocol contrast enhanced MRI could be performed as clinically warranted. ? Distention of the gallbladder although no radiopaque gallstones identified.? This finding technically indeterminate and further evaluation with ultrasound could be performed as clinically necessary.? Please correlate with LFTs. ? Moderate ascites ? Additional chronic and incidental findings as above.? ? ? Dictated by: Ezequiel Talamantes M.D. on 10/02/2021 at 19:43 ? ? Approved by: Ezequiel Talamantes M.D. on 10/02/2021 at 19:49 ? Critical Care Time Critical Care Time Critical Care Time: Yes Total Critical Care Time: 35 Attestation: The high probability of a clinically significant, sudden or life threatening deterioration of the [GI] system(s) required my full and direct attention, intervention and personal management. The aggregate critical care time was [35] minutes. This time is in addition to time spent performing reported procedures but includes the following: [x] Data Review and interpretation [x] Patient assessment and monitoring of vital signs [x] Documentation x[] Medication orders and management Discharge Plan Departure Patient Disposition: [facility] Clinical Impression: Upper gastrointestinal hemorrhage, Alcohol withdrawal Prescriptions: No Action multivitamin Tablet 1 tab PO DAILY 0RF calcium carbonate [Calcium 500] 500 mg calcium (1,250 mg) Tablet 1,000 mg PO DAILY 0RF ascorbic acid (vitamin C) [Vitamin C] 500 mg Tablet 1,000 mg PO BEDTIME 0RF hydrochlorothiazide 12.5 mg Capsule 12.5 mg PO BEDTIME 0RF albuterol sulfate 90 mcg/actuation Hfa Aerosol Inhaler 2 puff INHALATION BID 0RF cholecalciferol (vitamin D3) [Vitamin D3] 400 unit Tablet 400 unit PO DAILY 0RF omega 2-zpk-pmd-fish oil [Fish Oil] 1,000 mg (120 mg-180 mg) Capsule 1,000 mg PO BEDTIME 0RF acetaminophen [Tylenol] 325 mg Capsule 325 mg PO Q4H PRN (Reason: Pain (Scale Score 1-3)) 0RF Referrals: Simon Bowen MD [Primary Care Provider] -
[2021-10-02] MEDS: POTASSIUM CHLORIDE IN WATER 10 MEQ/100 ML PIGGYBACK 100 MEQ IV ×4 (18:21→23:36)
[2021-10-02 18:40] LABS: Magnesium 1.8 mg/dL (1.6-2.3)
--- NOTE | 2021-10-02 18:43 | DI.CT.S_ITS ---
PROCEDURE: CT ABDOMEN PELVIS W CON INDICATIONS: abdominal pain, liver history TECHNIQUE: After the administration of intravenous contrast, axial sections acquired from the lung bases to the pubic symphysis. Coronal and sagittal reformats were performed. For radiation dose reduction, the following was used: automated exposure control, adjustment of mA and/or kV according to patient size. COMPARISON: None. FINDINGS: ABDOMEN: Lung bases: Bibasilar scarring/atelectasis without focal consolidation. Heart: No pericardial effusion. Normal in size. Liver: Cirrhosis of the liver is seen. There is diffuse heterogeneous appearance of the parenchyma without definite focal lesion however confluent or diffuse metastatic/neoplastic lesions cannot be excluded. Recanalization of the umbilical vein Gallbladder: Mildly distended. No radiopaque calculi seen. Bile ducts: Normal. Pancreas: Normal. Spleen: Borderline enlarged. There are perisplenic varices Adrenals: Normal. Kidneys and Ureters: Normal. Stomach and duodenum: Small hiatal hernia. There are numerous gastrohepatic varices. Gastroesophageal varices also seen. Bowel: No evidence of bowel obstruction. There is scattered colonic diverticula without definite focal diverticulitis. Other: Diffuse moderate ascites Abdominal nodes: Normal. Aorta and IVC: Normal in size. Ventral wall: Normal. PELVIS: Bladder and reproductive: Unremarkable. Inguinal region: No hernia. Pelvic nodes: Normal. Bones: No suspicious bony lesions. No vertebral body compression fractures. Diffuse spondylytic changes and facet disease. IMPRESSION: Cirrhosis of the liver. Numerous varices in mild splenomegaly suggesting portal venous hypertension. Ill-defined hypoattenuating foci throughout the liver which could reflect advanced parenchymal disease/regenerative or siderotic nodules, however cannot exclude confluent metastatic or neoplastic lesions. Further evaluation with liver protocol contrast enhanced MRI could be performed as clinically warranted. Distention of the gallbladder although no radiopaque gallstones identified. This finding technically indeterminate and further evaluation with ultrasound could be performed as clinically necessary. Please correlate with LFTs. Moderate ascites Additional chronic and incidental findings as above. Dictated by: Ezequiel Talamantes M.D. on 10/02/2021 at 19:43 Approved by: Ezequiel Talamantes M.D. on 10/02/2021 at 19:49
[2021-10-02 19:04] LABS: Hematocrit 35.6 % (36-46); Hemoglobin 12.1 g/dL (12.0-16.0)
[2021-10-02] MEDS: PANTOPRAZOLE 40 MG VIAL 80 MG IV (19:33)
[2021-10-02] MEDS: OCTREOTIDE 100 MCG/ML VIAL 50 MCG IV (19:33)
[2021-10-02] MEDS: PHENobarbital 65 MG/ML VIAL 260 MG IV (19:34)
[2021-10-02] MEDS: OCTREOTIDE 500 MCG in SODIUM CHLORIDE 0.9% 100 ML 5.05 ML IV (19:34)
[2021-10-02] MEDS: cefTRIAXone 2,000 MG in SODIUM CHLORIDE 0.9% 100 ML 200 ML IV (19:35)
[2021-10-02] MEDS: ONDANSETRON 4 MG/2 ML INJ IV (19:43)
[2021-10-02 20:31] LABS: COVID19 - ADMIT (NP swab/PCR) Negative (Negative)
[2021-10-03] VITALS: BP 94/50; PULSE 97; RESP 18
[2021-10-03 00:30] VITALS: BP 103/63; PULSE 104; RESP 31
== END 2021-10-03 02:10 | disposition short-term general hospital (02) ==
PROVIDERS: Emergency Medicine; Emergency Provider Emergency Medicine; PCP Family Medicine
DX: K92.0 Hematemesis (principal); F10.239 Alcohol dependence with withdrawal, unspecified; Y90.0 Blood alcohol level of less than 20 mg/100 ml; Z20.822 Contact with and (suspected) exposure to COVID-19
CPT/HCPCS: 36415; 74177; 80053; 80320; 81001; 83735; 85014; 85018; 85025; 85610; 85730; 86850; 86900; 86901; 87086; 87635; 96365; 96366; 96367; 96368; 96375; 96376; 99284; 99285; C9803; C9113; J0696; J2354; J2405; J2560; Q9967

== ENCOUNTER → 2021-10-28 09:57 | Outpatient (CLI) | payer OTHER, MEDICAID, SELFPAY ==
[2021-10-28 19:43] LABS: Add Manual Diff / Slide Review NO; Basophils Absolute Auto 0 /uL (0-100); Basophils Percent Auto 0.6 % (0-2); Eosinophils Absolute Auto 0 /uL (0-450); Eosinophils Percent Auto 0.5 % (2-4); Hematocrit 36.2 % (36-46); Hemoglobin 12.5 g/dL (12.0-16.0); Lymphocytes Absolute Auto 900 /uL (1100-4500); Lymphocytes Percent Auto 15.5 % (25-40); Mean Corpuscular HGB Conc 34.5 % (30-36); Mean Corpuscular Hemoglobin 34.4 PG (26-34); Mean Corpuscular Volume 99.6 fL (80-100); Monocytes Absolute Auto 600 /uL (0-900); Monocytes Percent Auto 10.3 % (3-14); Neutrophils Absolute Auto 4100 /uL (1500-7000); Neutrophils Percent Auto 73.1 % (50-75); Platelet Count 214 X10^3/uL (150-400); Red Blood Cell Count 3.63 X10^6/uL (4.0-5.2); Red Cell Distribution Width 13.8 % (11.6-14.8); White Blood Cell Count 5.5 X10^3/uL (4.5-11.0)
[2021-10-28 19:47] LABS: Alanine Aminotransferase 98 IU/L (<35); Albumin Globulin Ratio 0.8 (1.0-2.8); Alkaline Phosphatase 109 U/L (38-126); Aspartate Aminotransferase 257 IU/L (14-36); BUN Creatinine Ratio 17.4 (6-22); Blood Urea Nitrogen 8 mg/dL (7-17); Calcium 9.6 mg/dL (8.4-10.2); Carbon Dioxide 28 mmol/L (22-32); Chloride 98 mmol/L (98-107); Cholesterol 220 mg/dL (140-199); Estimated Glomerular Filt Rate > 60.0 mL/min (>60); Gamma Glutamyl Transpeptidase 258 U/L (12-43); Globulin 5.1 g/dL (1.7-4.1); Glucose 127 mg/dL (80-110); HDL Cholesterol 20 mg/dL (40-60); HEMOLYSIS 44 (0-50); LDL Cholesterol Calculated 175 mg/dL (<100); Potassium 3.4 mmol/L (3.4-5.1); Sodium 137 mmol/L (137-145); Total Protein 9.1 g/dL (6.3-8.2); Triglycerides 127 mg/dL (35-150)
[2021-10-28 20:49] LABS: Folate 9.7 ng/mL (2.76-20.0); Vitamin B12 802 pg/mL (239-931)
== END ==
PROVIDERS: PCP Family Medicine; Visit Provider Physician Assistant Medical
DX: E66.9 Obesity, unspecified (principal); R03.0 Elevated blood-pressure reading, without diagnosis of hypertension; R74.8 Abnormal levels of other serum enzymes; D64.9 Anemia, unspecified; K21.01 Gastro-esophageal reflux disease with esophagitis, with bleeding; R79.89 Other specified abnormal findings of blood chemistry
CPT/HCPCS: 80053; 80061; 82306; 82607; 82746; 82977; 85025; 87522

== ENCOUNTER → 2021-11-18 13:11 | Outpatient (CLI) | payer OTHER, MEDICAID, SELFPAY ==
[2021-11-18 19:06] LABS: Add Manual Diff / Slide Review NO; Basophils Absolute Auto 0 /uL (0-100); Basophils Percent Auto 0.9 % (0-2); Eosinophils Absolute Auto 0 /uL (0-450); Eosinophils Percent Auto 0.4 % (2-4); Hematocrit 37.3 % (36-46); Hemoglobin 12.7 g/dL (12.0-16.0); Lymphocytes Absolute Auto 900 /uL (1100-4500); Lymphocytes Percent Auto 20.6 % (25-40); Mean Corpuscular Hemoglobin 32.3 PG (26-34); Monocytes Absolute Auto 400 /uL (0-900); Monocytes Percent Auto 8.9 % (3-14); Neutrophils Absolute Auto 3000 /uL (1500-7000); Neutrophils Percent Auto 69.2 % (50-75); Platelet Count 151 X10^3/uL (150-400); Red Blood Cell Count 3.93 X10^6/uL (4.0-5.2); Red Cell Distribution Width 13.2 % (11.6-14.8); White Blood Cell Count 4.4 X10^3/uL (4.5-11.0)
[2021-11-18 19:25] LABS: Alanine Aminotransferase 65 IU/L (<35); Albumin 3.9 g/dL (3.5-5.0); Albumin Globulin Ratio 0.8 (1.0-2.8); Alkaline Phosphatase 93 U/L (38-126); Aspartate Aminotransferase 109 IU/L (14-36); BUN Creatinine Ratio 17.2 (6-22); Bilirubin Total 1.4 mg/dL (0.2-1.3); Blood Urea Nitrogen 10 mg/dL (7-17); Calcium 9.7 mg/dL (8.4-10.2); Carbon Dioxide 24 mmol/L (22-32); Chloride 100 mmol/L (98-107); Estimated Glomerular Filt Rate > 60.0 mL/min (>60); Gamma Glutamyl Transpeptidase 174 U/L (12-43); Globulin 4.8 g/dL (1.7-4.1); Glucose 148 mg/dL (80-110); HEMOLYSIS < 15 (0-50); Potassium 3.8 mmol/L (3.4-5.1); Sodium 136 mmol/L (137-145); Total Protein 8.7 g/dL (6.3-8.2)
== END ==
PROVIDERS: PCP Family Medicine; Visit Provider Physician Assistant Medical
DX: G62.9 Polyneuropathy, unspecified (principal); I10 Essential (primary) hypertension; R03.0 Elevated blood-pressure reading, without diagnosis of hypertension; R74.8 Abnormal levels of other serum enzymes
CPT/HCPCS: 80053; 82977; 85025

== ENCOUNTER → 2021-12-11 11:35 | Outpatient (CLI) | payer OTHER, MEDICAID, SELFPAY ==
[2021-12-11 19:33] LABS: Add Manual Diff / Slide Review NO; Basophils Absolute Auto 0 /uL (0-100); Basophils Percent Auto 0.6 % (0-2); Eosinophils Absolute Auto 0 /uL (0-450); Eosinophils Percent Auto 1.1 % (2-4); Hematocrit 36.4 % (36-46); Hemoglobin 12.4 g/dL (12.0-16.0); Lymphocytes Absolute Auto 1000 /uL (1100-4500); Lymphocytes Percent Auto 25.7 % (25-40); Mean Corpuscular HGB Conc 34.1 % (30-36); Mean Corpuscular Hemoglobin 31.2 PG (26-34); Mean Corpuscular Volume 91.5 fL (80-100); Monocytes Absolute Auto 400 /uL (0-900); Monocytes Percent Auto 9.5 % (3-14); Neutrophils Absolute Auto 2600 /uL (1500-7000); Neutrophils Percent Auto 63.1 % (50-75); Platelet Count 147 X10^3/uL (150-400); Red Blood Cell Count 3.97 X10^6/uL (4.0-5.2); Red Cell Distribution Width 13.2 % (11.6-14.8)
[2021-12-11 19:43] LABS: Alanine Aminotransferase 41 IU/L (<35); Albumin 3.7 g/dL (3.5-5.0); Albumin Globulin Ratio 0.8 (1.0-2.8); Alkaline Phosphatase 109 U/L (38-126); Aspartate Aminotransferase 72 IU/L (14-36); BUN Creatinine Ratio 16.3 (6-22); Blood Urea Nitrogen 8 mg/dL (7-17); Calcium 9.4 mg/dL (8.4-10.2); Carbon Dioxide 25 mmol/L (22-32); Chloride 105 mmol/L (98-107); Estimated Glomerular Filt Rate > 60.0 mL/min (>60); Gamma Glutamyl Transpeptidase 174 U/L (12-43); Globulin 4.4 g/dL (1.7-4.1); Glucose 108 mg/dL (80-110); HEMOLYSIS < 15 (0-50); Sodium 141 mmol/L (137-145); Total Protein 8.1 g/dL (6.3-8.2)
== END ==
PROVIDERS: PCP Family Medicine; Visit Provider Physician Assistant Medical
DX: K25.9 Gastric ulcer, unspecified as acute or chronic, without hemorrhage or perforation (principal); K74.60 Unspecified cirrhosis of liver; K76.9 Liver disease, unspecified; R73.9 Hyperglycemia, unspecified
CPT/HCPCS: 80053; 82977; 83036; 85025

== ENCOUNTER → 2022-01-26 07:59 | Outpatient (CLI) | payer OTHER, MEDICAID, SELFPAY ==
[2022-01-26 20:23] LABS: COVID19 - ORCAS (NP or Nasal) Negative (Negative)
== END ==
PROVIDERS: PCP Family Medicine; Visit Provider Physician Assistant
DX: Z01.812 Encounter for preprocedural laboratory examination (principal); Z20.822 Contact with and (suspected) exposure to COVID-19
CPT/HCPCS: C9803; U0003

== ENCOUNTER → 2022-02-09 13:36 | Outpatient (CLI) | payer OTHER, MEDICAID, SELFPAY ==
[2022-02-09 19:06] LABS: Add Manual Diff / Slide Review NO; Basophils Absolute Auto 0 /uL (0-100); Basophils Percent Auto 1.2 % (0-2); Eosinophils Absolute Auto 0 /uL (0-450); Hematocrit 38.2 % (36-46); Hemoglobin 12.8 g/dL (12.0-16.0); Lymphocytes Absolute Auto 900 /uL (1100-4500); Lymphocytes Percent Auto 23.9 % (25-40); Mean Corpuscular HGB Conc 33.3 % (30-36); Mean Corpuscular Hemoglobin 29.8 PG (26-34); Mean Corpuscular Volume 89.3 fL (80-100); Monocytes Absolute Auto 400 /uL (0-900); Monocytes Percent Auto 10.8 % (3-14); Neutrophils Absolute Auto 2400 /uL (1500-7000); Neutrophils Percent Auto 63.1 % (50-75); Platelet Count 119 X10^3/uL (150-400); Red Blood Cell Count 4.28 X10^6/uL (4.0-5.2); Red Cell Distribution Width 15.7 % (11.6-14.8); White Blood Cell Count 3.9 X10^3/uL (4.5-11.0)
[2022-02-09 19:11] LABS: Alanine Aminotransferase 40 IU/L (<35); Albumin 4.1 g/dL (3.5-5.0); Alkaline Phosphatase 131 U/L (38-126); Aspartate Aminotransferase 64 IU/L (14-36); BUN Creatinine Ratio 18.4 (6-22); Bilirubin Total 0.8 mg/dL (0.2-1.3); Blood Urea Nitrogen 9 mg/dL (7-17); Calcium 9.6 mg/dL (8.4-10.2); Carbon Dioxide 23 mmol/L (22-32); Chloride 104 mmol/L (98-107); Estimated Glomerular Filt Rate > 60.0 mL/min (>60); Gamma Glutamyl Transpeptidase 165 U/L (12-43); Globulin 4.3 g/dL (1.7-4.1); Glucose 111 mg/dL (80-110); HEMOLYSIS < 15 (0-50); Potassium 3.9 mmol/L (3.4-5.1); Sodium 139 mmol/L (137-145); Total Protein 8.4 g/dL (6.3-8.2)
[2022-02-09 19:31] LABS: Free T3, Triiodothyronine Free 4.08 pg/mL (2.77-5.27)
[2022-02-09 19:45] LABS: TSH w/ Reflex to FT4 1.15 uIU/mL (0.47-4.68)
[2022-02-09 20:14] LABS: Ammonia (NH3) 10 umol/L (9-30)
== END ==
PROVIDERS: PCP Family Medicine; Visit Provider Physician Assistant Medical
DX: K74.60 Unspecified cirrhosis of liver (principal); K76.9 Liver disease, unspecified; L65.9 Nonscarring hair loss, unspecified
CPT/HCPCS: 80053; 82140; 82977; 84443; 84481; 85025

== ENCOUNTER → 2022-03-15 16:31 | Outpatient (CLI) | payer OTHER, MEDICAID, SELFPAY ==
--- NOTE | 2022-03-15 16:34 | DI.MG.S_ITS ---
BILATERAL DIGITAL SCREENING MAMMOGRAM 3D/2D WITH CAD: 03/15/2022 CLINICAL: Routine screening. Comparison is made to exams dated: 10/30/2019 mammogram, 10/26/2018 mammogram - [facility], and 11/17/2016 mammogram - [facility]. The tissue of both breasts is heterogeneously dense. This may lower the sensitivity of mammography. Current study was also evaluated with a Computer Aided Detection (CAD) system. There is a new oval high density asymmetry with an obscured margin in the left breast at 5 o'clock middle depth. No other significant masses, calcifications, or other findings are seen in either breast. IMPRESSION: INCOMPLETE: NEEDS ADDITIONAL IMAGING EVALUATION The new oval high density asymmetry in the left breast is indeterminate. A diagnostic mammogram and ultrasound is recommended. This exam was interpreted at Station ID: [id number]. NOTE: For mammograms, a report in lay terms will be sent to the patient. Approximately 15% of breast malignancies will not be visualized mammographically. In the management of a palpable breast mass, a negative mammogram must not discourage biopsy of a clinically suspicious lesion. Electronically Signed By: Saba handy/alicia:03/16/2022 11:41:44 letter sent: Additional Imaging Needed ACR BI-RADS Category 0: Incomplete 3340F
== END ==
PROVIDERS: PCP Physician Assistant Medical; Referring Provider Physician Assistant Medical; Visit Provider Physician Assistant Medical
DX: Z12.31 Encounter for screening mammogram for malignant neoplasm of breast (principal)
CPT/HCPCS: 77063; 77067

== ENCOUNTER → 2022-03-16 12:43 | Outpatient (CLI) | payer OTHER, MEDICAID, SELFPAY | PROVIDERS: PCP Physician Assistant Medical; Referring Provider Physician Assistant Medical; Visit Provider Physician Assistant Medical | DX: Z13.820 Encounter for screening for osteoporosis (principal); Z78.0 Asymptomatic menopausal state; M85.88 Other specified disorders of bone density and structure, other site | CPT/HCPCS: 77080 ==

== ENCOUNTER → 2022-04-13 12:15 | Outpatient (CLI) | payer OTHER, MEDICAID, SELFPAY ==
--- NOTE | 2022-04-13 | DI.MG.S_ITS ---
UNILATERAL LEFT DIGITAL DIAGNOSTIC MAMMOGRAM 3D/2D WITH ADDITIONAL VIEWS: 04/13/2022 CLINICAL: Additional evaluation requested from prior study. Comparison is made to exams dated: 03/15/2022 mammogram, 10/30/2019 mammogram, and 10/26/2018 mammogram - [facility]. The tissue of left breast is heterogeneously dense. This may lower the sensitivity of mammography. There is a 1 cm oval equal density focal asymmetry with an obscured and circumscribed margin in the left breast at 3 o'clock middle depth. This is seen in additional views. This is more prominent. No other significant masses or calcifications are seen in the breast. IMPRESSION: INCOMPLETE: NEEDS ADDITIONAL IMAGING EVALUATION The 1 cm oval equal density focal asymmetry in the left breast is indeterminate. An ultrasound is recommended. This exam was interpreted at Station ID: [id number]. NOTE: For mammograms, a report in lay terms will be sent to the patient. Approximately 15% of breast malignancies will not be visualized mammographically. In the management of a palpable breast mass, a negative mammogram must not discourage biopsy of a clinically suspicious lesion. Electronically Signed By: Reese cardona/alicia:04/13/2022 14:19:57 ACR BI-RADS Category 0: Incomplete 3340F
--- NOTE | 2022-04-13 12:18 | DI.US.S_ITS ---
PROCEDURE: US ABDOMEN COMPLETE INDICATIONS: ALCOHOLIC CIRRHOSIS OF LIVER TECHNIQUE: Real-time scanning was performed of the abdominal and retroperitoneal organs, with image documentation. COMPARISON: [facility], CT, CT ABDOMEN PELVIS W CON, 10/02/2021, 18:52. FINDINGS: Liver: Nodular liver with coarsened hepatic echotexture. No focal hepatic mass. Gallbladder: Hydropic with no wall thickening or pericholecystic fluid. Biliary ducts: Normal caliber. Pancreas: Visualized portions of the pancreas are sonographically normal. Spleen: Borderline splenomegaly measuring 13 centimeters. Kidneys: Mild hydronephrosis versus prominent extrarenal pelves. Aorta: Visualized aorta is normal in caliber at less than 3 cm. Iliacs: Proximal common iliac arteries are normal in caliber at less than 2.5 cm. IVC: Intrahepatic inferior vena cava is patent. Miscellaneous: Mild to moderate volume ascites. IMPRESSION: Cirrhosis with mild to moderate volume ascites and borderline splenomegaly. Dictated by: Inder Adame M.D. on 04/13/2022 at 15:43 Approved by: Inder Adame M.D. on 04/13/2022 at 15:45
--- NOTE | 2022-04-13 12:18 | DI.US.S_ITS ---
LIMITED ULTRASOUND OF LEFT BREAST: 04/13/2022 CLINICAL: Patient returns for additional imaging over a suspected mass in the left breast. Comparison is made to exams dated: 04/13/2022 mammogram, 03/15/2022 mammogram, 10/30/2019 mammogram, and 10/26/2018 mammogram - [facility]. Color flow and real-time ultrasound of the left breast 3-5 o'clock region were performed. Cook scale images of the real-time examination were reviewed. There is a 0.9 cm x 0.9 cm x 0.3 cm oval mass with a circumscribed margin in the left breast at 3 o'clock middle depth 5 cm from the nipple. This oval mass is hypoechoic. This correlates with mammography findings. Color flow imaging demonstrates that there is no vascularity present. IMPRESSION: PROBABLY BENIGN The 0.9 cm x 0.9 cm x 0.3 cm oval mass in the left breast most likely is a complicated cyst and is probably benign. A follow-up left ultrasound in 6 months is recommended to demonstrate stability. This exam was interpreted at Station ID: [id number]. Electronically Signed By: Reese cardona/alicia:04/13/2022 14:21:57 letter sent: Followup Recommended Ultrasound BI-RADS: 3 Probably benign
[2022-04-13 14:42] LABS: Add Manual Diff / Slide Review NO; Basophils Absolute Auto 0 /uL (0-100); Basophils Percent Auto 0.9 % (0-2); Eosinophils Absolute Auto 0 /uL (0-450); Eosinophils Percent Auto 0.5 % (2-4); Hematocrit 39.9 % (36-46); Hemoglobin 13.7 g/dL (12.0-16.0); Lymphocytes Absolute Auto 1000 /uL (1100-4500); Lymphocytes Percent Auto 30.9 % (25-40); Mean Corpuscular HGB Conc 34.4 % (30-36); Mean Corpuscular Hemoglobin 30.1 PG (26-34); Mean Corpuscular Volume 87.5 fL (80-100); Monocytes Absolute Auto 300 /uL (0-900); Monocytes Percent Auto 9.2 % (3-14); Neutrophils Absolute Auto 1900 /uL (1500-7000); Neutrophils Percent Auto 58.5 % (50-75); Platelet Count 91 X10^3/uL (150-400); Red Blood Cell Count 4.57 X10^6/uL (4.0-5.2); Red Cell Distribution Width 14.7 % (11.6-14.8); White Blood Cell Count 3.2 X10^3/uL (4.5-11.0)
[2022-04-13 14:43] LABS: INR 1.4 (0.9-1.3); Prothrombin Time 15.1 SECONDS (10.1-12.7)
[2022-04-13 15:01] LABS: Alanine Aminotransferase 40 IU/L (<35); Albumin 4.6 g/dL (3.5-5.0); Alkaline Phosphatase 115 U/L (38-126); Aspartate Aminotransferase 53 IU/L (14-36); BUN Creatinine Ratio 14.9 (6-22); Bilirubin Total 1.1 mg/dL (0.2-1.3); Blood Urea Nitrogen 7 mg/dL (7-17); Calcium 9.7 mg/dL (8.4-10.2); Carbon Dioxide 25 mmol/L (22-32); Chloride 102 mmol/L (98-107); Estimated Glomerular Filt Rate > 60 mL/min (>60); Gamma Glutamyl Transpeptidase 146 U/L (12-43); Globulin 4.5 g/dL (1.7-4.1); Glucose 95 mg/dL (80-110); HEMOLYSIS < 15 (0-50); Potassium 3.8 mmol/L (3.4-5.1); Sodium 139 mmol/L (137-145); Total Protein 9.1 g/dL (6.3-8.2)
== END ==
PROVIDERS: PCP Physician Assistant Medical; Referring Provider Physician Assistant Medical; Visit Provider Physician Assistant Medical
DX: R92.8 Other abnormal and inconclusive findings on diagnostic imaging of breast (principal); N63.25 Unspecified lump in the left breast, overlapping quadrants; D50.0 Iron deficiency anemia secondary to blood loss (chronic); K70.31 Alcoholic cirrhosis of liver with ascites; K76.9 Liver disease, unspecified
CPT/HCPCS: 36415; 76642; 76700; 77065; 80053; 82977; 85025; 85610; G0279

== ENCOUNTER → 2022-07-15 14:23 | Outpatient (CLI) | payer OTHER, MEDICAID, SELFPAY ==
[2022-07-15 16:27] LABS: Add Manual Diff / Slide Review NO; Basophils Absolute Auto 0 /uL (0-100); Basophils Percent Auto 0.8 % (0-2); Eosinophils Absolute Auto 0 /uL (0-450); Eosinophils Percent Auto 0.5 % (2-4); Hematocrit 37.8 % (36-46); Hemoglobin 13.2 g/dL (12.0-16.0); Lymphocytes Absolute Auto 1100 /uL (1100-4500); Mean Corpuscular Hemoglobin 31.2 PG (26-34); Monocytes Absolute Auto 300 /uL (0-900); Monocytes Percent Auto 9.4 % (3-14); Neutrophils Absolute Auto 1800 /uL (1500-7000); Neutrophils Percent Auto 55.3 % (50-75); Platelet Count 87 X10^3/uL (150-400); Red Blood Cell Count 4.24 X10^6/uL (4.0-5.2); Red Cell Distribution Width 13.9 % (11.6-14.8); White Blood Cell Count 3.3 X10^3/uL (4.5-11.0)
[2022-07-15 16:32] LABS: INR 1.3 (0.9-1.3)
[2022-07-15 16:39] LABS: Alanine Aminotransferase 33 IU/L (<35); Alkaline Phosphatase 86 U/L (38-126); Aspartate Aminotransferase 46 IU/L (14-36); BUN Creatinine Ratio 12.2 (6-22); Bilirubin Total 1.1 mg/dL (0.2-1.3); Blood Urea Nitrogen 6 mg/dL (7-17); Calcium 9.2 mg/dL (8.4-10.2); Carbon Dioxide 28 mmol/L (22-32); Chloride 98 mmol/L (98-107); Cholesterol 175 mg/dL (140-199); Estimated Glomerular Filt Rate > 60 mL/min (>60); Gamma Glutamyl Transpeptidase 116 U/L (12-43); Globulin 3.9 g/dL (1.7-4.1); Glucose 89 mg/dL (80-110); HDL Cholesterol 58 mg/dL (40-60); HEMOLYSIS < 15 (0-50); LDL Cholesterol Calculated 107 mg/dL (<100); Potassium 3.9 mmol/L (3.4-5.1); Sodium 137 mmol/L (137-145); Total Protein 7.9 g/dL (6.3-8.2); Triglycerides 51 mg/dL (35-150)
== END ==
PROVIDERS: PCP Physician Assistant Medical; Referring Provider Physician Assistant Medical; Visit Provider Physician Assistant Medical
DX: E66.9 Obesity, unspecified (principal); E78.5 Hyperlipidemia, unspecified; K74.60 Unspecified cirrhosis of liver; R03.0 Elevated blood-pressure reading, without diagnosis of hypertension; R74.8 Abnormal levels of other serum enzymes
CPT/HCPCS: 36415; 80053; 80061; 82977; 85025; 85610

== ENCOUNTER → 2022-11-03 14:28 | Outpatient (CLI) | payer OTHER, MEDICAID, SELFPAY ==
--- NOTE | 2022-11-03 14:29 | DI.US.S_ITS ---
LIMITED ULTRASOUND OF LEFT BREAST: 11/03/2022 CLINICAL: 6 month follow-up of cysts. Comparison is made to exams dated: 04/13/2022 ultrasound, 04/13/2022 mammogram, and 03/15/2022 mammogram - [facility]. Color flow and real-time ultrasound of the left breast were performed. There is a stable benign 0.9 cm x 0.9 cm x 0.3 cm oval mass with a circumscribed margin in the left breast at 3 o'clock middle depth 5 cm from the nipple. This oval mass is hypoechoic. This correlates with mammography findings. Color flow imaging demonstrates that there is no vascularity present. No significant abnormalities were seen sonographically in the left breast. IMPRESSION: BENIGN There is no sonographic evidence of malignancy. The stable 0.9 cm x 0.9 cm x 0.3 cm oval mass in the left breast is consistent with a complicated cyst and is benign. A 1 year screening mammogram is recommended. This exam was interpreted at Station ID: [id number]. Electronically Signed By: Inder Adame M.D., jr/alicia:11/03/2022 15:58:12 letter sent: Normal Exam Ultrasound BI-RADS: 2 Benign
[2022-11-03 16:22] LABS: INR 1.2 (0.9-1.3); Prothrombin Time 13.8 SECONDS (10.1-12.7)
[2022-11-03 16:24] LABS: Add Manual Diff / Slide Review NO; Basophils Absolute Auto 0 /uL (0-100); Basophils Percent Auto 0.9 % (0-2); Eosinophils Absolute Auto 0 /uL (0-450); Hematocrit 42.9 % (36-46); Hemoglobin 14.7 g/dL (12.0-16.0); Lymphocytes Absolute Auto 1200 /uL (1100-4500); Mean Corpuscular HGB Conc 34.3 % (30-36); Mean Corpuscular Hemoglobin 30.7 PG (26-34); Mean Corpuscular Volume 89.5 fL (80-100); Monocytes Absolute Auto 300 /uL (0-900); Monocytes Percent Auto 8.3 % (3-14); Neutrophils Absolute Auto 2000 /uL (1500-7000); Neutrophils Percent Auto 55.8 % (50-75); Platelet Count 102 X10^3/uL (150-400); Red Blood Cell Count 4.79 X10^6/uL (4.0-5.2); Red Cell Distribution Width 13.7 % (11.6-14.8); White Blood Cell Count 3.6 X10^3/uL (4.5-11.0)
[2022-11-03 16:25] LABS: PTT Partial Thromboplastin Tim 36 SECONDS (26-36)
[2022-11-03 16:35] LABS: Alanine Aminotransferase 42 IU/L (<35); Albumin 4.7 g/dL (3.5-5.0); Albumin Globulin Ratio 1.1 (1.0-2.8); Alkaline Phosphatase 95 U/L (38-126); Aspartate Aminotransferase 50 IU/L (14-36); BUN Creatinine Ratio 22.2 (6-22); Blood Urea Nitrogen 10 mg/dL (7-17); Calcium 9.7 mg/dL (8.4-10.2); Carbon Dioxide 27 mmol/L (22-32); Chloride 102 mmol/L (98-107); Estimated Glomerular Filt Rate > 60 mL/min (>60); Gamma Glutamyl Transpeptidase 121 U/L (12-43); Globulin 4.1 g/dL (1.7-4.1); Glucose 95 mg/dL (80-110); HEMOLYSIS < 15 (0-50); Potassium 3.6 mmol/L (3.4-5.1); Sodium 141 mmol/L (137-145); Total Protein 8.8 g/dL (6.3-8.2)
== END ==
PROVIDERS: PCP Physician Assistant Medical; Referring Provider Physician Assistant Medical; Visit Provider Physician Assistant Medical
DX: R92.8 Other abnormal and inconclusive findings on diagnostic imaging of breast; N63.25 Unspecified lump in the left breast, overlapping quadrants; K70.30 Alcoholic cirrhosis of liver without ascites; K76.9 Liver disease, unspecified; R03.0 Elevated blood-pressure reading, without diagnosis of hypertension
CPT/HCPCS: 36415; 76642; 76705; 80053; 82977; 85025; 85610; 85730

== ENCOUNTER → 2022-11-03 14:28 | Outpatient (CLI) | payer OTHER, MEDICAID, SELFPAY ==
--- NOTE | 2022-11-03 | DI.US.S_ITS ---
PROCEDURE: US ABDOMEN LIMITED INDICATIONS: CIRRHOSIS TECHNIQUE: Real-time focused scanning was performed of the abdomen, with image documentation. COMPARISON: [facility], US, US ABDOMEN COMPLETE, 04/13/2022, 13:50. FINDINGS: Liver measures 15 cm. Echotexture is coarse. Suspected nodular contour. Main portal vein is patent. Main portal vein velocity is 35 centimeters/second, previously 23 centimeters/second. Flow is hepatopetal. Gallbladder is within normal limits. Gallbladder is distended and patient has been NPO. Biliary tree within normal limits. Pancreas within normal limits. IMPRESSION: Cirrhotic appearance of the liver. No suspicious focal lesion identified on ultrasound. Consider continued HCC screening. Dictated by: Joce Mohr M.D. on 11/03/2022 at 16:46 Approved by: Joce Mohr M.D. on 11/03/2022 at 16:48
== END ==
PROVIDERS: PCP Physician Assistant Medical; Referring Provider Internal Medicine; Visit Provider Internal Medicine
DX: K70.30 Alcoholic cirrhosis of liver without ascites (principal)
CPT/HCPCS: 76705

== ENCOUNTER → 2023-02-01 13:37 | Outpatient (CLI) | payer OTHER, MEDICAID, SELFPAY ==
[2023-02-01 19:17] LABS: INR 1.3 (0.9-1.3); Prothrombin Time 14.4 SECONDS (10.1-12.7)
[2023-02-01 19:35] LABS: Add Manual Diff / Slide Review NO; Basophils Absolute Auto 0 /uL (0-100); Basophils Percent Auto 0.9 % (0-2); Eosinophils Absolute Auto 200 /uL (0-450); Eosinophils Percent Auto 4.2 % (2-4); Hematocrit 41.1 % (36-46); Hemoglobin 14.2 g/dL (12.0-16.0); Lymphocytes Absolute Auto 1400 /uL (1100-4500); Lymphocytes Percent Auto 37.9 % (25-40); Mean Corpuscular HGB Conc 34.5 % (30-36); Mean Corpuscular Hemoglobin 30.3 PG (26-34); Mean Corpuscular Volume 87.7 fL (80-100); Monocytes Absolute Auto 300 /uL (0-900); Monocytes Percent Auto 9.5 % (3-14); Neutrophils Absolute Auto 1700 /uL (1500-7000); Neutrophils Percent Auto 47.5 % (50-75); Platelet Count 101 X10^3/uL (150-400); Red Blood Cell Count 4.68 X10^6/uL (4.0-5.2); Red Cell Distribution Width 13.8 % (11.6-14.8); White Blood Cell Count 3.7 X10^3/uL (4.5-11.0)
[2023-02-01 19:41] LABS: Alanine Aminotransferase 38 IU/L (<35); Albumin 4.2 g/dL (3.5-5.0); Albumin Globulin Ratio 1.2 (1.0-2.8); Alkaline Phosphatase 94 U/L (38-126); Aspartate Aminotransferase 43 IU/L (14-36); BUN Creatinine Ratio 18.4 (6-22); Bilirubin Total 0.9 mg/dL (0.2-1.3); Blood Urea Nitrogen 9 mg/dL (7-17); Carbon Dioxide 27 mmol/L (22-32); Chloride 99 mmol/L (98-107); Cholesterol 165 mg/dL (140-199); Estimated Glomerular Filt Rate > 60 mL/min (>60); Globulin 3.5 g/dL (1.7-4.1); Glucose 92 mg/dL (80-110); HDL Cholesterol 63 mg/dL (40-60); HEMOLYSIS < 15 (0-50); LDL Cholesterol Calculated 92 mg/dL (<100); Potassium 3.9 mmol/L (3.4-5.1); Sodium 134 mmol/L (137-145); Total Protein 7.7 g/dL (6.3-8.2); Triglycerides 51 mg/dL (35-150)
[2023-02-01 20:00] LABS: Vitamin D 25 Hydroxy (D3) 81.6 ng/mL (30.0-100.0)
[2023-02-01 20:13] LABS: TSH w/ Reflex to FT4 1.68 uIU/mL (0.47-4.68)
[2023-02-01 20:17] LABS: Gamma Glutamyl Transpeptidase 79 U/L (12-43)
[2023-02-03 02:07] LABS: Labcorp Hemoglobin (Hb) A1c 5.2 % (4.8-5.6)
== END ==
PROVIDERS: PCP Physician Assistant Medical; Visit Provider Physician Assistant Medical
DX: E55.9 Vitamin D deficiency, unspecified (principal); E78.5 Hyperlipidemia, unspecified; I10 Essential (primary) hypertension; K25.9 Gastric ulcer, unspecified as acute or chronic, without hemorrhage or perforation; K74.60 Unspecified cirrhosis of liver; K76.9 Liver disease, unspecified; R73.9 Hyperglycemia, unspecified
CPT/HCPCS: 80053; 80061; 82306; 82977; 83036; 84443; 85025; 85610

== ENCOUNTER → 2023-05-18 14:41 | Outpatient (CLI) | payer OTHER, MEDICAID, SELFPAY ==
--- NOTE | 2023-05-18 | DI.US.S_ITS ---
PROCEDURE: US ABDOMEN LIMITED INDICATIONS: ALCOHOLIC CIRRHOSIS TECHNIQUE: Real-time focused scanning was performed of the abdomen, with image documentation. COMPARISON: [facility], , US ABDOMEN LIMITED, 11/03/2022, 14:48. FINDINGS: Liver demonstrates steatosis and is nodular in appearance. Gallbladder demonstrates no stones. Wall thickness is normal measuring 2 mm. Common bile duct measures 2 mm. Spleen measures 12.8 cm. Minimal perihepatic fluid is present. IMPRESSION: Cirrhotic appearance of the liver with minimal perihepatic fluid. Dictated by: Kacie Fournier M.D. on 05/18/2023 at 16:51 Approved by: Kacie Fournier M.D. on 05/18/2023 at 16:52
--- NOTE | 2023-05-18 14:44 | DI.US.S_ITS ---
PROCEDURE: US PELVIC COMPLETE INDICATIONS: previous imaging 2019 monitoring TECHNIQUE: Real-time scanning was performed of the pelvic organs, with image documentation. Additional endovaginal scanning was necessary due to incomplete visualization of the adnexal and endometrial structures by transabdominal scanning. COMPARISON: [facility], , US PELVIC COMPLETE, 10/03/2019, 12:59. [facility], , US ABDOMEN LIMITED, 05/18/2023, 15:26. FINDINGS: Uterus: Removed. Ovaries: The right ovary measures 1.3 x 0.6 x 1.9 cm, with a calculated ovarian volume of 0.4 cc. The left ovary measures 1.9 x 1.2 x 1.1 cm, with a calculated ovarian volume of 1.3 cc. The ovaries have a normal sonographic appearance. Less than 12 follicles can be seen in each ovary. No adnexal masses are seen. Other: No pathologic free abdominal or pelvic fluid. IMPRESSION: Hysterectomy. Ovaries are mildly atrophic. We strive to produce accurate, complete, and clear reports of imaging services. To assist us in improving patient care, this report was composed using standard report templates and voice recognition software. Therefore, it may contain abnormal punctuation, insertions and/or omissions. Occasional wrong-word or sound-alike substitutions may occur. Though we review the report and make efforts to correct it, we do recommend that the report be read carefully in proper context to recognize any text inaccuracies. Dictated by: Kacie Fournier M.D. on 05/18/2023 at 16:47 Approved by: Kacie Fournier M.D. on 05/18/2023 at 16:47
[2023-05-18 17:18] LABS: Add Manual Diff / Slide Review NO; Basophils Absolute Auto 0 /uL (0-100); Basophils Percent Auto 0.8 % (0-2); Eosinophils Absolute Auto 0 /uL (0-450); Eosinophils Percent Auto 0.6 % (2-4); Hematocrit 42.6 % (36-46); Hemoglobin 14.8 g/dL (12.0-16.0); Lymphocytes Absolute Auto 1200 /uL (1100-4500); Lymphocytes Percent Auto 32.7 % (25-40); Mean Corpuscular HGB Conc 34.6 % (30-36); Mean Corpuscular Hemoglobin 30.7 PG (26-34); Mean Corpuscular Volume 88.7 fL (80-100); Monocytes Absolute Auto 300 /uL (0-900); Monocytes Percent Auto 7.8 % (3-14); Neutrophils Absolute Auto 2100 /uL (1500-7000); Neutrophils Percent Auto 58.1 % (50-75); Platelet Count 108 X10^3/uL (150-400); Red Cell Distribution Width 13.5 % (11.6-14.8); White Blood Cell Count 3.7 X10^3/uL (4.5-11.0)
[2023-05-18 17:30] LABS: Alanine Aminotransferase 35 IU/L (<35); Albumin 4.5 g/dL (3.5-5.0); Albumin Globulin Ratio 1.2 (1.0-2.8); Alkaline Phosphatase 85 U/L (38-126); Aspartate Aminotransferase 38 IU/L (14-36); Bilirubin Total 0.7 mg/dL (0.2-1.3); Blood Urea Nitrogen 11 mg/dL (7-17); Calcium 9.3 mg/dL (8.4-10.2); Carbon Dioxide 28 mmol/L (22-32); Chloride 102 mmol/L (98-107); Cholesterol 180 mg/dL (140-199); Estimated Glomerular Filt Rate > 60 mL/min (>60); Gamma Glutamyl Transpeptidase 67 U/L (12-43); Globulin 3.7 g/dL (1.7-4.1); Glucose 90 mg/dL (80-110); HDL Cholesterol 58 mg/dL (40-60); HEMOLYSIS 18 (0-50); LDL Cholesterol Calculated 111 mg/dL (<100); Potassium 3.6 mmol/L (3.4-5.1); Sodium 140 mmol/L (137-145); Total Protein 8.2 g/dL (6.3-8.2); Triglycerides 53 mg/dL (35-150)
[2023-05-18 17:34] LABS: INR 1.2 (0.9-1.3); Prothrombin Time 13.9 SECONDS (10.1-12.7)
[2023-05-18 18:32] LABS: Vitamin D 25 Hydroxy (D3) 66.5 ng/mL (30.0-100.0)
[2023-05-18 18:45] LABS: TSH w/ Reflex to FT4 1.17 uIU/mL (0.47-4.68)
== END ==
PROVIDERS: PCP Physician Assistant Medical; Referring Provider Physician Assistant Medical; Visit Provider Physician Assistant Medical
DX: K70.30 Alcoholic cirrhosis of liver without ascites (principal); D64.9 Anemia, unspecified; E55.9 Vitamin D deficiency, unspecified; K76.9 Liver disease, unspecified; R73.9 Hyperglycemia, unspecified; R74.8 Abnormal levels of other serum enzymes; Z90.710 Acquired absence of both cervix and uterus; Z80.41 Family history of malignant neoplasm of ovary
CPT/HCPCS: 36415; 76705; 76830; 76856; 80053; 80061; 82306; 82977; 84443; 85025; 85610; 93976

== ENCOUNTER → 2023-09-01 13:38 | Outpatient (CLI) | payer OTHER, MEDICAID, SELFPAY ==
[2023-09-01 19:35] LABS: INR 1.1 (0.9-1.3)
[2023-09-01 19:40] LABS: Alanine Aminotransferase 30 IU/L (<35); Albumin 4.3 g/dL (3.5-5.0); Albumin Globulin Ratio 1.3 (1.0-2.8); Alkaline Phosphatase 71 U/L (38-126); Aspartate Aminotransferase 39 IU/L (14-36); BUN Creatinine Ratio 18.2 (6-22); Bilirubin Total 0.5 mg/dL (0.2-1.3); Blood Urea Nitrogen 10 mg/dL (7-17); Calcium 9.4 mg/dL (8.4-10.2); Carbon Dioxide 25 mmol/L (22-32); Chloride 101 mmol/L (98-107); Estimated Glomerular Filt Rate > 60 mL/min (>60); Gamma Glutamyl Transpeptidase 63 U/L (12-43); Globulin 3.2 g/dL (1.7-4.1); Glucose 97 mg/dL (80-110); HEMOLYSIS < 15 (0-50); Potassium 3.7 mmol/L (3.4-5.1); Sodium 135 mmol/L (137-145); Total Protein 7.5 g/dL (6.3-8.2)
[2023-09-01 19:45] LABS: Add Manual Diff / Slide Review NO; Basophils Absolute Auto 0 /uL (0-100); Basophils Percent Auto 1.1 % (0-2); Eosinophils Absolute Auto 100 /uL (0-450); Eosinophils Percent Auto 2.1 % (2-4); Hematocrit 41.8 % (36-46); Hemoglobin 14.3 g/dL (12.0-16.0); Lymphocytes Absolute Auto 1200 /uL (1100-4500); Mean Corpuscular HGB Conc 34.1 % (30-36); Mean Corpuscular Hemoglobin 30.2 PG (26-34); Mean Corpuscular Volume 88.3 fL (80-100); Monocytes Absolute Auto 300 /uL (0-900); Monocytes Percent Auto 8.4 % (3-14); Neutrophils Absolute Auto 1900 /uL (1500-7000); Neutrophils Percent Auto 54.4 % (50-75); Platelet Count 110 X10^3/uL (150-400); Red Blood Cell Count 4.74 X10^6/uL (4.0-5.2); Red Cell Distribution Width 13.8 % (11.6-14.8); White Blood Cell Count 3.5 X10^3/uL (4.5-11.0)
[2023-09-01 19:59] LABS: Vitamin D 25 Hydroxy (D3) 53.4 ng/mL (30.0-100.0)
== END ==
PROVIDERS: PCP Physician Assistant Medical; Visit Provider Physician Assistant Medical
DX: R73.9 Hyperglycemia, unspecified (principal); K76.9 Liver disease, unspecified; K74.69 Other cirrhosis of liver; D50.0 Iron deficiency anemia secondary to blood loss (chronic); E55.9 Vitamin D deficiency, unspecified
CPT/HCPCS: 80053; 82306; 82977; 85025; 85610

== ENCOUNTER → 2023-11-02 14:19 | Outpatient (CLI) | payer OTHER, MEDICAID, SELFPAY ==
--- NOTE | 2023-11-02 | DI.MG.S_ITS ---
BILATERAL DIGITAL SCREENING MAMMOGRAM 3D/2D WITH CAD: 11/02/2023 CLINICAL: Routine screening. Comparison is made to exams dated: 04/13/2022 mammogram, 03/15/2022 mammogram, 10/30/2019 mammogram, 10/26/2018 mammogram - [facility], and 11/17/2016 mammogram - [facility]. Both breasts are heterogeneously dense, which may obscure small masses (category c / 51-75% glandular tissue). Current study was also evaluated with a Computer Aided Detection (CAD) system. There are benign vascular calcifications in both breasts. No significant masses, calcifications, or other findings are seen in either breast. There has been no significant interval change. IMPRESSION: BENIGN There is no mammographic evidence of malignancy. A 1 year screening mammogram is recommended. Based on the Tyrer Cuzick model (a risk assessment model) the patient's lifetime risk is 7.8% and her 10 year risk is 3.5%. According to the ACR, ACS, and NCCN guidelines, an annual breast MRI exam along with mammogram is recommended if the patient's lifetime risk is 20% or greater. This exam was interpreted at Station ID: [id number]. NOTE: For mammograms, a report in lay terms will be sent to the patient. Approximately 15% of breast malignancies will not be visualized mammographically. In the management of a palpable breast mass, a negative mammogram must not discourage biopsy of a clinically suspicious lesion. Electronically Signed By: Keyur gaitan/alicia:11/03/2023 13:05:59 letter sent: Normal Exam ACR BI-RADS Category 2: Benign Finding(s) [id number]
--- NOTE | 2023-11-02 | DI.US.S_ITS ---
PROCEDURE: US ABDOMEN COMPLETE INDICATIONS: CIRRHOSIS TECHNIQUE: Real-time scanning was performed of the abdominal and retroperitoneal organs, with image documentation. COMPARISON: [facility], US, US ABDOMEN COMPLETE, 04/13/2022, 13:50. [facility], US, US ABDOMEN LIMITED, 11/03/2022, 14:48. [facility], US, US ABDOMEN LIMITED, 05/18/2023, 15:26. FINDINGS: Liver: Liver is normal in size and demonstrates a coarsened echotexture. No wellington focal nodules can be seen. The main portal vein demonstrates normal size and demonstrates normal appearing, hepatopetal flow. Gallbladder: The gallbladder is seen in an anterior location No findings of gallstones or sludge are seen. The gallbladder wall is not thickened, measuring 3 mm or less. No specific pericholecystic fluid is seen. The sonographic Barksdale sign is negative. Biliary ducts: Intrahepatic bile ducts are non-dilated. Extrahepatic bile duct caliber measures 3-4 mm. Normal is 6-7 mm or less in diameter, or 10 mm or less post-cholecystectomy. Pancreas: Visualized portions of the pancreas are sonographically normal. Spleen: Spleen is normal in size and homogeneous in echotexture. The splenic vein is patent. Kidneys: Kidneys are normal in size and echotexture. Right kidney measures 11.1 cm long; left kidney measures 10.3 cm long. No nephrolithiasis. No solid masses. Mild hydronephrosis can be seen on the right, which persists postvoid. Aorta: Visualized aorta is normal in caliber at less than 3 cm. Iliacs: Proximal common iliac arteries are normal in caliber at less than 2.5 cm. IVC: Intrahepatic inferior vena cava is patent. Miscellaneous: No free abdominal fluid. A postvoid residual 59 cc is measured. IMPRESSION: Cirrhotic appearing liver, without focal nodules. No splenomegaly. Mild right-sided hydronephrosis is seen. Moderate postvoid residual, 59 cc. Dictated by: Myke Reynaga M.D. on 11/02/2023 at 17:28 Approved by: Myke Reynaga M.D. on 11/02/2023 at 17:31
== END ==
PROVIDERS: PCP Physician Assistant Medical; Referring Provider Physician Assistant Medical; Visit Provider Physician Assistant Medical
DX: K70.30 Alcoholic cirrhosis of liver without ascites (principal); N13.30 Unspecified hydronephrosis
CPT/HCPCS: 76700; 77063; 77067

== ENCOUNTER → 2023-12-06 14:06 | Outpatient (CLI) | payer OTHER, MEDICAID, SELFPAY ==
[2023-12-06 18:52] LABS: INR 1.1 (0.9-1.3); Prothrombin Time 12.7 SECONDS (9.4-12.5)
[2023-12-06 19:10] LABS: Alanine Aminotransferase 30 IU/L (<35); Albumin 4.3 g/dL (3.5-5.0); Albumin Globulin Ratio 1.3 (1.0-2.8); Alkaline Phosphatase 71 U/L (38-126); Aspartate Aminotransferase 35 IU/L (14-36); BUN Creatinine Ratio 18.9 (6-22); Bilirubin Total 0.8 mg/dL (0.2-1.3); Blood Urea Nitrogen 10 mg/dL (7-17); Calcium 9.7 mg/dL (8.4-10.2); Carbon Dioxide 29 mmol/L (22-32); Chloride 101 mmol/L (98-107); Estimated Glomerular Filt Rate > 60 mL/min (>60); Gamma Glutamyl Transpeptidase 50 U/L (12-43); Globulin 3.3 g/dL (1.7-4.1); Glucose 97 mg/dL (80-110); HEMOLYSIS < 15 (0-50); Potassium 4.3 mmol/L (3.4-5.1); Sodium 137 mmol/L (137-145); Total Protein 7.6 g/dL (6.3-8.2)
[2023-12-06 19:18] LABS: Add Manual Diff / Slide Review NO; Basophils Absolute Auto 0 /uL (0-100); Basophils Percent Auto 1.1 % (0-2); Eosinophils Absolute Auto 0 /uL (0-450); Eosinophils Percent Auto 0.7 % (2-4); Hematocrit 43.2 % (36-46); Hemoglobin 14.8 g/dL (12.0-16.0); Lymphocytes Absolute Auto 1100 /uL (1100-4500); Lymphocytes Percent Auto 34.1 % (25-40); Mean Corpuscular HGB Conc 34.2 % (30-36); Mean Corpuscular Hemoglobin 30.3 PG (26-34); Mean Corpuscular Volume 88.7 fL (80-100); Monocytes Absolute Auto 300 /uL (0-900); Monocytes Percent Auto 9.6 % (3-14); Neutrophils Absolute Auto 1700 /uL (1500-7000); Neutrophils Percent Auto 54.5 % (50-75); Platelet Count 118 X10^3/uL (150-400); Red Blood Cell Count 4.87 X10^6/uL (4.0-5.2); Red Cell Distribution Width 13.3 % (11.6-14.8); White Blood Cell Count 3.2 X10^3/uL (4.5-11.0)
[2023-12-06 19:38] LABS: Vitamin D 25 Hydroxy (D3) 50.6 ng/mL (30.0-100.0)
[2023-12-08 06:54] LABS: Alpha Fetoprotein 2.3 ng/mL (0.0-9.2)
== END ==
PROVIDERS: PCP Physician Assistant Medical; Visit Provider Internal Medicine
DX: K70.30 Alcoholic cirrhosis of liver without ascites (principal); L65.9 Nonscarring hair loss, unspecified; R73.9 Hyperglycemia, unspecified; K76.9 Liver disease, unspecified; K74.60 Unspecified cirrhosis of liver; R79.89 Other specified abnormal findings of blood chemistry; D64.9 Anemia, unspecified; E66.9 Obesity, unspecified; I10 Essential (primary) hypertension; R74.8 Abnormal levels of other serum enzymes
CPT/HCPCS: 80053; 82105; 82306; 82977; 85025; 85610

== ENCOUNTER → 2024-03-08 14:08 | Outpatient (CLI) | payer OTHER, MEDICAID, SELFPAY ==
[2024-03-08 19:19] LABS: INR 1.1 (0.9-1.3); Prothrombin Time 12.4 SECONDS (9.4-12.5)
[2024-03-08 19:21] LABS: PTT Partial Thromboplastin Tim 39 SECONDS (25.1-36.5)
[2024-03-08 19:34] LABS: Add Manual Diff / Slide Review NO; Basophils Absolute Auto 0 /uL (0-100); Basophils Percent Auto 0.9 % (0-2); Eosinophils Absolute Auto 0 /uL (0-450); Hematocrit 42.1 % (36-46); Hemoglobin 14.3 g/dL (12.0-16.0); Lymphocytes Absolute Auto 1400 /uL (1100-4500); Lymphocytes Percent Auto 36.7 % (25-40); Mean Corpuscular Hemoglobin 30.4 PG (26-34); Mean Corpuscular Volume 89.6 fL (80-100); Monocytes Absolute Auto 400 /uL (0-900); Monocytes Percent Auto 9.6 % (3-14); Neutrophils Absolute Auto 1900 /uL (1500-7000); Neutrophils Percent Auto 51.8 % (50-75); Platelet Count 131 X10^3/uL (150-400); Red Cell Distribution Width 13.2 % (11.6-14.8); White Blood Cell Count 3.7 X10^3/uL (4.5-11.0)
[2024-03-08 19:54] LABS: Alanine Aminotransferase 28 IU/L (<35); Albumin 4.6 g/dL (3.5-5.0); Albumin Globulin Ratio 1.5 (1.0-2.8); Alkaline Phosphatase 70 U/L (38-126); Aspartate Aminotransferase 36 IU/L (14-36); BUN Creatinine Ratio 17.8 (6-22); Bilirubin Total 0.7 mg/dL (0.2-1.3); Blood Urea Nitrogen 8 mg/dL (7-17); Calcium 9.1 mg/dL (8.4-10.2); Carbon Dioxide 25 mmol/L (22-32); Chloride 101 mmol/L (98-107); Estimated Glomerular Filt Rate > 60 mL/min (>60); Gamma Glutamyl Transpeptidase 44 U/L (12-43); Globulin 3.1 g/dL (1.7-4.1); Glucose 91 mg/dL (80-110); HEMOLYSIS 17 (0-50); Potassium 3.8 mmol/L (3.4-5.1); Sodium 136 mmol/L (137-145); Total Protein 7.7 g/dL (6.3-8.2)
== END ==
PROVIDERS: PCP Physician Assistant Medical; Visit Provider Physician Assistant Medical
DX: K76.9 Liver disease, unspecified (principal); R79.89 Other specified abnormal findings of blood chemistry; D50.0 Iron deficiency anemia secondary to blood loss (chronic); K74.69 Other cirrhosis of liver
CPT/HCPCS: 80053; 82306; 82977; 85025; 85610; 85730

== ENCOUNTER → 2024-06-04 13:07 | Outpatient (CLI) | payer OTHER, MEDICAID, SELFPAY ==
[2024-06-04 20:07] LABS: INR 1.2 (0.9-1.3); Prothrombin Time 13.2 SECONDS (9.4-12.5)
[2024-06-04 20:30] LABS: Add Manual Diff / Slide Review NO; Basophils Absolute Auto 0 /uL (0-100); Basophils Percent Auto 0.7 % (0-2); Eosinophils Absolute Auto 0 /uL (0-450); Hematocrit 43.7 % (36-46); Hemoglobin 14.9 g/dL (12.0-16.0); Lymphocytes Absolute Auto 1400 /uL (1100-4500); Lymphocytes Percent Auto 32.8 % (25-40); Mean Corpuscular Hemoglobin 30.3 PG (26-34); Mean Corpuscular Volume 89.3 fL (80-100); Monocytes Absolute Auto 400 /uL (0-900); Monocytes Percent Auto 8.2 % (3-14); Neutrophils Absolute Auto 2500 /uL (1500-7000); Neutrophils Percent Auto 57.3 % (50-75); Platelet Count 137 X10^3/uL (150-400); Red Cell Distribution Width 13.3 % (11.6-14.8); White Blood Cell Count 4.3 X10^3/uL (4.5-11.0)
[2024-06-04 20:40] LABS: Alanine Aminotransferase 37 IU/L (<35); Albumin 4.4 g/dL (3.5-5.0); Albumin Globulin Ratio 1.5 (1.0-2.8); Alkaline Phosphatase 70 U/L (38-126); Aspartate Aminotransferase 41 IU/L (14-36); BUN Creatinine Ratio 17.2 (6-22); Bilirubin Total 0.8 mg/dL (0.2-1.3); Blood Urea Nitrogen 10 mg/dL (7-17); Carbon Dioxide 24 mmol/L (22-32); Chloride 103 mmol/L (98-107); Cholesterol 201 mg/dL (140-199); Estimated Glomerular Filt Rate > 60 mL/min (>60); Gamma Glutamyl Transpeptidase 45 U/L (12-43); Globulin 2.9 g/dL (1.7-4.1); Glucose 96 mg/dL (80-110); HDL Cholesterol 71 mg/dL (40-60); HEMOLYSIS < 15 (0-50); LDL Cholesterol Calculated 119 mg/dL (<100); Potassium 4.1 mmol/L (3.4-5.1); Sodium 136 mmol/L (137-145); Total Protein 7.3 g/dL (6.3-8.2); Triglycerides 53 mg/dL (35-150)
[2024-06-04 20:55] LABS: Vitamin D 25 Hydroxy (D3) 36.9 ng/mL (30.0-100.0)
[2024-06-04 21:09] LABS: TSH w/ Reflex to FT4 1.68 uIU/mL (0.47-4.68)
== END ==
PROVIDERS: PCP Physician Assistant Medical; Visit Provider Physician Assistant Medical
DX: R73.9 Hyperglycemia, unspecified (principal); D64.9 Anemia, unspecified; K21.01 Gastro-esophageal reflux disease with esophagitis, with bleeding; K74.60 Unspecified cirrhosis of liver; K25.9 Gastric ulcer, unspecified as acute or chronic, without hemorrhage or perforation; E55.9 Vitamin D deficiency, unspecified; Z13.6 Encounter for screening for cardiovascular disorders; R79.89 Other specified abnormal findings of blood chemistry; K74.69 Other cirrhosis of liver
CPT/HCPCS: 80053; 80061; 82306; 82977; 84443; 85025; 85610

== ENCOUNTER → 2024-06-15 14:47 | Outpatient (CLI) | payer OTHER, MEDICAID, SELFPAY ==
--- NOTE | 2024-06-15 | DI.US.S_ITS ---
PROCEDURE: US ABDOMEN COMPLETE INDICATIONS: Alcoholic cirrhosis of liver without ascites TECHNIQUE: Real-time scanning was performed of the abdominal and retroperitoneal organs, with image documentation. COMPARISON: [facility], US, US ABDOMEN COMPLETE, 11/02/2023, 14:34. FINDINGS: Liver: Liver is normal in size with a coarsened echotexture. Main portal vein is patent with hepatopetal flow. Gallbladder: Within normal limits. No gallstones or gallbladder wall thickening. Stable anterior location. Biliary ducts: Intrahepatic bile ducts are non-dilated. Extrahepatic bile duct caliber measures 3 mm. Normal is 6-7 mm or less in diameter, or 10 mm or less post-cholecystectomy. Pancreas: Visualized portions of the pancreas are sonographically normal. Spleen: Spleen is normal in size and homogeneous in echotexture. Kidneys: Kidneys are normal in size and echotexture. Right kidney measures 11.3 cm long; left kidney measures 9.3 cm long. Stable chronic right mild hydronephrosis. No left hydronephrosis. No nephrolithiasis. No solid masses. Aorta: Visualized aorta is normal in caliber at less than 3 cm. Iliacs: Proximal common iliac arteries are normal in caliber at less than 2.5 cm. IVC: Intrahepatic inferior vena cava is patent. Miscellaneous: No free abdominal fluid. IMPRESSION: 1. Redemonstration of hepatic cirrhosis. No focal hepatic masses are identified. 2. Stable mild right hydronephrosis. Dictated by: Jose Mclain M.D. on 06/17/2024 at 10:10 Approved by: Jose Mclain M.D. on 06/17/2024 at 10:13
== END ==
PROVIDERS: PCP Physician Assistant Medical; Referring Provider Internal Medicine; Visit Provider Internal Medicine
DX: K70.30 Alcoholic cirrhosis of liver without ascites (principal); N13.30 Unspecified hydronephrosis
CPT/HCPCS: 76700

== ENCOUNTER → 2024-09-06 14:07 | Outpatient (CLI) | payer OTHER, MEDICAID, SELFPAY ==
[2024-09-06 19:30] LABS: Hematocrit 43.6 % (36-46); Hemoglobin 14.7 g/dL (12.0-16.0); Mean Corpuscular HGB Conc 33.7 % (30-36); Mean Corpuscular Hemoglobin 29.7 PG (26-34); Mean Corpuscular Volume 88.1 fL (80-100); Platelet Count 142 X10^3/uL (150-400); Red Blood Cell Count 4.95 X10^6/uL (4.0-5.2); Red Cell Distribution Width 13.9 % (11.6-14.8); White Blood Cell Count 4.3 X10^3/uL (4.5-11.0)
[2024-09-06 19:46] LABS: Alanine Aminotransferase 30 IU/L (<35); Albumin 4.4 g/dL (3.5-5.0); Albumin Globulin Ratio 1.3 (1.0-2.8); Alkaline Phosphatase 64 U/L (38-126); Aspartate Aminotransferase 36 IU/L (14-36); BUN Creatinine Ratio 21.3 (6-22); Bilirubin Total 0.5 mg/dL (0.2-1.3); Blood Urea Nitrogen 13 mg/dL (7-17); Calcium 9.3 mg/dL (8.4-10.2); Carbon Dioxide 27 mmol/L (22-32); Chloride 101 mmol/L (98-107); Estimated Glomerular Filt Rate > 60 mL/min (>60); Gamma Glutamyl Transpeptidase 41 U/L (12-43); Globulin 3.3 g/dL (1.7-4.1); Glucose 96 mg/dL (80-110); HEMOLYSIS < 15 (0-50); Potassium 3.9 mmol/L (3.4-5.1); Sodium 136 mmol/L (137-145); Total Protein 7.7 g/dL (6.3-8.2)
[2024-09-06 20:04] LABS: Vitamin D 25 Hydroxy (D3) 56.7 ng/mL (30.0-100.0)
[2024-09-07 20:13] LABS: INR 1.1 (0.9-1.3); Prothrombin Time 12.5 SECONDS (9.4-12.5)
== END ==
PROVIDERS: PCP Physician Assistant Medical; Visit Provider Physician Assistant Medical
DX: K74.69 Other cirrhosis of liver (principal); R79.89 Other specified abnormal findings of blood chemistry; R74.8 Abnormal levels of other serum enzymes; E55.9 Vitamin D deficiency, unspecified; R73.9 Hyperglycemia, unspecified; I10 Essential (primary) hypertension; Z13.6 Encounter for screening for cardiovascular disorders; E78.5 Hyperlipidemia, unspecified
CPT/HCPCS: 80053; 82306; 82977; 85027; 85610

== ENCOUNTER → 2024-11-15 14:15 | Outpatient (CLI) | payer OTHER, SELFPAY ==
--- NOTE | 2024-11-15 | DI.US.S_ITS ---
PROCEDURE: US ABDOMEN COMPLETE INDICATIONS: CIRRHOSIS - HEPATIC CELLULAR CARCINOMA SCREENING TECHNIQUE: Real-time scanning was performed of the abdominal and retroperitoneal organs, with image documentation. COMPARISON: [facility], US, US ABDOMEN COMPLETE, 06/15/2024, 15:00. FINDINGS: Liver: The liver is normal in size with a lobulated margin. The echotexture of the parenchyma is slightly coarse. No discrete mass. Subjectively, this is stable compared to the prior exam. There is appropriate direction of flow in the main portal vein. Portal vein is normal caliber at 0.9 cm. Peak systolic velocity in is 16.2 centimeters/second. Gallbladder: The gallbladder is normal without stones, sludge, wall thickening, or pericholecystic fluid. Biliary ducts: Intrahepatic bile ducts are non-dilated. Extrahepatic bile duct caliber measures 6.1 mm. Normal is 6-7 mm or less in diameter, or 10 mm or less post-cholecystectomy. Pancreas: Visualized portions of the pancreas are sonographically normal. Spleen: Spleen is normal in size and homogeneous in echotexture. Spleen measures 9.6 cm in length. Kidneys: Kidneys are normal in size and echotexture. Right kidney measures 9.5 cm long; left kidney measures 9.5 cm long. Mild right hydronephrosis, similar to slightly improved compared to the prior exam. No left hydronephrosis. No solid masses. Aorta: Visualized aorta is normal in caliber at less than 3 cm. Iliacs: Proximal common iliac arteries are normal in caliber at less than 2.5 cm. IVC: Intrahepatic inferior vena cava is patent. Miscellaneous: No free abdominal fluid. IMPRESSION: Normal size liver with mildly cirrhotic morphology. No significant progression since the prior exam. No discrete liver mass. Normal size spleen and no other finding to suggest portal hypertension. Stable to slightly improved, mild right hydronephrosis Dictated by: Saba Edmondson M.D. on 11/16/2024 at 21:18 Approved by: Saba Edmondson M.D. on 11/16/2024 at 21:26
--- NOTE | 2024-11-15 14:16 | DI.MG.S_ITS ---
BILATERAL DIGITAL SCREENING MAMMOGRAM 3D/2D WITH CAD: 11/15/2024 CLINICAL: Routine screening. Comparison is made to exams dated: 11/02/2023 mammogram, 03/15/2022 mammogram, and 10/30/2019 mammogram - [facility]. The breasts are heterogeneously dense, which may obscure small masses (category c / 51-75% glandular tissue). Current study was also evaluated with a Computer Aided Detection (CAD) system. There are benign vascular calcifications in both breasts. No significant masses, calcifications, or other findings are seen in either breast. There has been no significant interval change. IMPRESSION: BENIGN There is no mammographic evidence of malignancy. A 1 year screening mammogram is recommended. Based on the Tyrer Cuzick model (a risk assessment model) the patient's lifetime risk is 7.5% and her 10 year risk is 3.5%. According to the ACR, ACS, and NCCN guidelines, an annual breast MRI exam along with mammogram is recommended if the patient's lifetime risk is 20% or greater. This exam was interpreted at Station ID: [id number]. NOTE: For mammograms, a report in lay terms will be sent to the patient. Approximately 15% of breast malignancies will not be visualized mammographically. In the management of a palpable breast mass, a negative mammogram must not discourage biopsy of a clinically suspicious lesion. Electronically Signed By: Marshal crenshaw/alicia:11/16/2024 19:41:23 letter sent: Normal Exam ACR BI-RADS Category 2: Benign
--- NOTE | 2024-11-15 14:16 | DI.RAD.S_ITS ---
PROCEDURE: XR DEXA AXIAL SKELETON INDICATIONS: post menopause COMPARISON: [facility], CR, XR DEXA AXIAL SKELETON, 03/16/2022, 13:06. FINDINGS: Lumbar Spine: Bone mineral density 0.810 g/cm2, T score -2.2. Left Hip: Bone mineral density 0.895 g/cm2, T score -0.4. Left Femoral Neck: Bone mineral density 0.786 g/cm2, T score -0.6. Fracture Risk Calculation (when applicable): 10-year fracture risk of a major osteoporotic fracture 7.4 percent and of a hip fracture 0.4 percent. (T score greater or equal to -1.0 to: NORMAL) (T score from -1.1 to -2.4: OSTEOPENIA) (T score less than or equal to -2.5: OSTEOPOROSIS) IMPRESSION: Low bone mineral density (osteopenia) by WHO classification. Follow-up guidelines as follows: Osteoporosis: Consider a repeat DEXA and Vertebral Fracture Assessment (VFA) exam in 2 years or sooner if medically necessary, to reassess this patient's status. Osteopenia: Consider a repeat DEXA in 2-3 years to reassess this patient's status, or if there is a new clinical indication. Normal: Consider a repeat DEXA in 5 years or sooner, or if there is a new clinical indication. All treatment decisions require clinical judgment and consideration of individual patient factors, including patient preferences, comorbidities, previous drug use, risk factors not captured in the FRAX model (e.g., frailty, falls, vitamin D deficiency, increased bone turnover, interval significant decline in bone density ) and possible under- or over-estimation of fracture risk by FRAX. In addition, the NOF Guide recommends that FDA-approved medical therapies be considered in postmenopausal women and men age >= 50 years with a: * Hip or vertebral (clinical or morphometric) fracture * T-score of <=-2.5 at the spine or hip * Ten-year fracture probability by FRAX of >= 3% for hip fracture or >=20% for major osteoporotic fracture. People with diagnosed cases of osteoporosis or at high risk for fracture should have regular bone mineral density tests. For patients eligible for Medicare, routine testing is allowed once every 2 years. The testing frequency can be increased to one year for patients who have rapidly progressing disease, those who are receiving or discontinuing medical therapy to restore bone mass, or have additional risk factors. Dictated by: Jose Mclain M.D. on 11/16/2024 at 12:45 Approved by: Jose Mclain M.D. on 11/16/2024 at 12:46
== END ==
PROVIDERS: PCP Physician Assistant Medical; Referring Provider Internal Medicine; Visit Provider Internal Medicine
DX: Z12.31 Encounter for screening mammogram for malignant neoplasm of breast (principal); R92.333 Mammographic heterogeneous density, bilateral breasts; M85.88 Other specified disorders of bone density and structure, other site; K70.30 Alcoholic cirrhosis of liver without ascites; N13.30 Unspecified hydronephrosis; Z78.0 Asymptomatic menopausal state; B00.9 Herpesviral infection, unspecified
CPT/HCPCS: 76700; 77063; 77067; 77080

== ENCOUNTER 2024-11-16 07:46 | Day surgery (SDC) | payer OTHER, SELFPAY ==
--- NOTE | 2024-11-16 | PATH_ITS ---
[facility] Accession Number: [id number] No. of containers..05 Tissue . 01 Material submitted: . PART A: colon - TRANSVERSE COLON POLYP PART B: colon - CECAL POLYP PART C: colon - ASCENDING COLON POLYP PART D: colon - HEPATIC FLEXURE POLYP PART E: colon - SIGMOID COLON POLYP . 01 Diagnosis: Part A: TRANSVERSE COLON POLYP: Minute fragment of tubular adenoma, with admixed vegetable matter. . Part B: CECAL POLYP: Tubular adenoma. . Part C: ASCENDING COLON POLYP: Tubular adenoma. . Part D: HEPATIC FLEXURE POLYP: Tubular adenoma. . Part E: SIGMOID COLON POLYP: Tubular adenoma. [facility] 11/20/2024 1147 Local . 01 Electronically signed: . You Pacheco MD, Pathologist NPI- [id number] . 01 Gross description: . A. Received in formalin with two patient identifiers and 1. Transverse colon polyp, are multiple guidry and brown soft tissue fragments admixed with mucoid material aggregating to 1.8 x 0.6 x 0.2 cm. Filtered and submitted in cassette A1. . B. Received in formalin with two patient identifiers and cecal polyp, is a single guidry soft tissue fragment measuring 0.2 x 0.6 x 0.4 cm. Inked blue, bisected, and submitted entirely in cassette B1. . C. Received in formalin with two patient identifiers and ascending colon polyp, are multiple guidry-brown soft tissue fragments admixed with other biological material aggregating to 3.0 x 0.8 x 0.2 cm. Filtered and submitted in cassette C1. . D. Received in formalin with two patient identifiers and hepatic flexure, are multiple guidry-brown soft tissue fragments aggregating to 1.6 x 0.5 x 0.2 cm. Filtered and submitted in cassette D1. . E. Received in formalin with two patient identifiers and sigmoid colon polyp, is a single guidry soft tissue fragment measuring 0.7 x 0.5 x 1.1 cm. Inked blue, bisected, and submitted entirely in cassette E1. (KB:[id number]) /SHAY 11/20/2024 1147 Local . 01 Pathologist provided ICD-10: D12.0, D12.2, D12.3, D12.5 . 01 CPT . 614290, 441227, 748895, [id number], [id number] Specimen Comment: A courtesy copy of this report has been sent to [facility] Pathology Performed at: [address], [place], [place] [id number] MD You Pacheco MD Phone: [phone]
[2024-11-16 08:12] VITALS: BP 148/83; PULSE 91; RESP 16; TEMP 36.3; O2SAT 97
[2024-11-16] MEDS: SODIUM CHLORIDE 0.9% 1,000 ML 84 ML IV (08:15)
--- NOTE | 2024-11-16 08:37 | PM.HP.1 ---
History of Present Illness History of Present Illness Date Patient Seen: 11/16/24 Time Patient Seen: 08:37 Chief complaint: SDC Narrative: 63-year-old white female with previous history of polyps. Last colonoscopy at [facility] with polyps. [facility] Medical History (Updated 11/16/24 @ 08:38 by Sunday Barrera MD) Personal history of colonic polyps Depression Foot pain (~2019) Herpes (~1988) Bereavement Colon adenomas (~2015) Hepatitis C antibody test positive FH: ovarian cancer Screening for breast cancer Surgical History Anesthesia S/P JOSETTE (total abdominal hysterectomy) Family History Family/Other Schizophrenia Social History Smoking Status: Never smoker alcohol intake: former Meds Home Medications and Allergies Home Medications Medication Instructions Recorded Confirmed Type ascorbic acid (vitamin C) 500 mg 1,000 mg PO BEDTIME 10/04/18 02/09/23 History tablet (Vitamin C) calcium carbonate (Calcium 500) 1,000 mg PO DAILY 10/04/18 02/09/23 History multivitamin 1 tab PO DAILY 10/04/18 02/09/23 History valacyclovir 500 mg tablet 500 mg PO BID PRN herpetic 03/15/24 03/15/24 Rx (Valtrex) outbreak #14 tabs estradiol 0.01% (0.1 mg/gram) 1 g vaginal 3XW #42.5 grams 10/23/24 Rx vaginal cream (Estrace) Allergies Allergy/AdvReac Type Severity Reaction Status Date / Time No Known Drug Allergies Allergy Verified 11/16/24 08:07 Review of Systems Review of Systems ROS: Yes All systems reviewed with the patient and are negative except as otherwise documented Exam Vital Signs (past 8 hours): - 11/16/24 08:12 Temperature 97.3 F L Pulse Rate 91 H Respiratory Rate 16 Blood Pressure 148/83 H Pulse Oximetry 97 Oxygen Delivery Method Room Air Oxygen Delivery Method Room Air Narrative Exam Narrative: Gen: NAD, sitting comfortably in bed, appears well HEENT: Sclera are anicteric, head is normocephalic and atraumatic, trachea is midline. CV: RRR, no JVD Resp: clear to auscultation bilaterally, equal chest wall movement bilaterally Abd: soft, nontender, normoactive bowel sounds Ext: no edema, full range of motion Neuro: Cranial nerves II-XII grossly intact, no focal deficits Skin: No erythema or ecchymosis Assessment & Plan Assessment and plan (1) Personal history of colonic polyps: Status: Acute Plan Patient presents for colonoscopy Risks, benefits, alternatives to colonoscopy explained, including but not limited to bowel perforation or other serious complication requiring surgery at less than 1 in 5000 colonoscopies, abdominal pain, cramping or bleeding and less than 1% of colonoscopies, and the chances that we find a diagnosis that would require further intervention of about 2%. Patient agrees to proceed. Time-Based Coding :: [TOTAL MINUTES] spent with patient and on the chart (including review of chart, obtaining history, exam, reviewing outside data, placing orders, documenting exam and treatment plan, and counseling patient) on [DATE].
--- NOTE | 2024-11-16 09:12 | PM.OP.COLON ---
Operative Date/Time/Diagnoses Date of procedure: 11/16/24 Time of procedure: 09:12 Pre-op diagnosis: Personal history of polyps Post-op diagnosis: same Procedure & Clinicians Study performed: Colonoscopy with cold snare polypectomy of polyps of the transverse colon, cecum, ascending colon, hepatic flexure, sigmoid colon Same procedure as scheduled: Yes Indications: Personal history of polyps Surgeon: Sunday Barrera Procedure Notes SCOAP/Timeout: Performed Procedure in detail: Time-out was performed. Mac was induced. Patient was placed in left lateral decubitus position. The perineum was inspected without any gross abnormality. Lubricated pediatric colonoscope was inserted and advanced to the cecum. The terminal ileum was intubated. The colonoscope was withdrawn slowly inspecting the circumference of the colon. There was evidence of a previous tattoo marker near the hepatic flexure but no residual polyp in that area. Multiple polyps were identified and removed including transverse, cecum, ascending, hepatic flexure, and sigmoid colon polyps with cold snare polypectomy. Very small polyps may have been missed, prep quality was adequate. Retroflexed view of the rectum showed small, non prolapsed nonbleeding internal hemorrhoids. The scope was withdrawn the patient was taken to PACU in good condition.. Scope withdrawal time: 19 Sedation minutes: 27 Findings: polyp(s) Specimen(s): other (1. Transverse colon polyp2.cecal. 3.Ascending4. Hepatic flexure5. Sigmoid) Complications: none Impression: Multiple polyps Post-procedure Recommendations: Colonoscopy in 3 years Follow up: as needed Disposition: PACU
[2024-11-16 09:15] VITALS: BP 122/73; PULSE 100; RESP 12; TEMP 36.4; O2SAT 98
[2024-11-16 09:20] VITALS: BP 117/82; PULSE 90; RESP 19; O2SAT 99
[2024-11-16 09:25] VITALS: BP 129/74; PULSE 83; RESP 12; TEMP 36.3; O2SAT 99
[2024-11-16 09:29] VITALS: BP 128/82; PULSE 78; RESP 12; O2SAT 99
== END 2024-11-16 09:53 | disposition home or self-care (01) ==
PROVIDERS: PCP Physician Assistant Medical; Referring Provider Surgery; Visit Provider Surgery
PROC: 0DJD8ZZ Inspection of Lower Intestinal Tract, Via Natural or Artificial Opening Endoscopic (ICD-10-PCS; CPT 45378; principal; 2024-11-16 08:45)
DX: Z12.11 Encounter for screening for malignant neoplasm of colon (principal); D12.0 Benign neoplasm of cecum; D12.2 Benign neoplasm of ascending colon; D12.3 Benign neoplasm of transverse colon; D12.5 Benign neoplasm of sigmoid colon; Z86.0100 Personal history of colon polyps, unspecified
CPT/HCPCS: 45385; J2704

== ENCOUNTER → 2024-12-25 13:36 | Outpatient (CLI) | payer OTHER, SELFPAY ==
[2024-12-25 18:43] LABS: Add Manual Diff / Slide Review NO; Basophils Absolute Auto 0 /uL (0-100); Basophils Percent Auto 0.7 % (0-2); Eosinophils Absolute Auto 0 /uL (0-450); Eosinophils Percent Auto 0.7 % (2-4); Hematocrit 43.4 % (36-46); Hemoglobin 14.7 g/dL (12.0-16.0); Lymphocytes Absolute Auto 1200 /uL (1100-4500); Lymphocytes Percent Auto 31.3 % (25-40); Mean Corpuscular HGB Conc 33.8 % (30-36); Mean Corpuscular Hemoglobin 30.1 PG (26-34); Mean Corpuscular Volume 89.1 fL (80-100); Monocytes Absolute Auto 300 /uL (0-900); Monocytes Percent Auto 8.8 % (3-14); Neutrophils Absolute Auto 2200 /uL (1500-7000); Neutrophils Percent Auto 58.5 % (50-75); Platelet Count 150 X10^3/uL (150-400); Red Blood Cell Count 4.87 X10^6/uL (4.0-5.2); Red Cell Distribution Width 13.5 % (11.6-14.8); White Blood Cell Count 3.8 X10^3/uL (4.5-11.0)
[2024-12-25 19:23] LABS: INR 1.1 (0.9-1.3)
[2024-12-25 19:25] LABS: PTT Partial Thromboplastin Tim 34 SECONDS (25.1-36.5)
[2024-12-25 19:27] LABS: Alanine Aminotransferase 29 IU/L (<35); Albumin 4.6 g/dL (3.5-5.0); Albumin Globulin Ratio 1.4 (1.0-2.8); Alkaline Phosphatase 58 U/L (38-126); Aspartate Aminotransferase 31 IU/L (14-36); BUN Creatinine Ratio 17.7 (6-22); Bilirubin Total 0.6 mg/dL (0.2-1.3); Blood Urea Nitrogen 11 mg/dL (7-17); Calcium 9.5 mg/dL (8.4-10.2); Carbon Dioxide 26 mmol/L (22-32); Chloride 101 mmol/L (98-107); Estimated Glomerular Filt Rate > 60 mL/min (>60); Gamma Glutamyl Transpeptidase 38 U/L (12-43); Globulin 3.2 g/dL (1.7-4.1); Glucose 97 mg/dL (80-110); HEMOLYSIS < 15 (0-50); Potassium 4.2 mmol/L (3.4-5.1); Sodium 136 mmol/L (137-145); Total Protein 7.8 g/dL (6.3-8.2)
[2024-12-25 19:28] LABS: Vitamin D 25 Hydroxy (D3) 57.5 ng/mL (30.0-100.0)
== END ==
PROVIDERS: PCP Physician Assistant Medical; Visit Provider Physician Assistant Medical
DX: K74.69 Other cirrhosis of liver (principal); K76.9 Liver disease, unspecified; E55.9 Vitamin D deficiency, unspecified
CPT/HCPCS: 80053; 82306; 82977; 85025; 85610; 85730

== ENCOUNTER → 2025-04-16 14:02 | Outpatient (CLI) | payer MEDICARE, SELFPAY ==
[2025-04-16 18:56] LABS: Add Manual Diff / Slide Review NO; Basophils Absolute Auto 0 /uL (0-100); Basophils Percent Auto 0.9 % (0-2); Eosinophils Absolute Auto 0 /uL (0-450); Eosinophils Percent Auto 0.9 % (2-4); Hematocrit 42.8 % (36-46); Hemoglobin 14.6 g/dL (12.0-16.0); Lymphocytes Absolute Auto 1400 /uL (1100-4500); Lymphocytes Percent Auto 30.8 % (25-40); Mean Corpuscular Hemoglobin 30.2 PG (26-34); Mean Corpuscular Volume 88.9 fL (80-100); Monocytes Absolute Auto 400 /uL (0-900); Monocytes Percent Auto 9.9 % (3-14); Neutrophils Absolute Auto 2500 /uL (1500-7000); Neutrophils Percent Auto 57.5 % (50-75); Platelet Count 145 X10^3/uL (150-400); Red Blood Cell Count 4.82 X10^6/uL (4.0-5.2); White Blood Cell Count 4.4 X10^3/uL (4.5-11.0)
[2025-04-16 19:02] LABS: INR 1.1 (0.9-1.3); Prothrombin Time 12.1 SECONDS (9.4-12.5)
[2025-04-16 19:04] LABS: PTT Partial Thromboplastin Tim 38 SECONDS (25.1-36.5)
[2025-04-16 19:09] LABS: Alanine Aminotransferase 26 IU/L (<35); Albumin 4.6 g/dL (3.5-5.0); Albumin Globulin Ratio 1.6 (1.0-2.8); Alkaline Phosphatase 66 U/L (38-126); Aspartate Aminotransferase 33 IU/L (14-36); BUN Creatinine Ratio 16.4 (6-22); Bilirubin Total 0.6 mg/dL (0.2-1.3); Blood Urea Nitrogen 9 mg/dL (7-17); Calcium 9.4 mg/dL (8.4-10.2); Carbon Dioxide 22 mmol/L (22-32); Chloride 103 mmol/L (98-107); Cholesterol 191 mg/dL (140-199); Estimated Glomerular Filt Rate > 60 mL/min (>60); Gamma Glutamyl Transpeptidase 39 U/L (12-43); Globulin 2.8 g/dL (1.7-4.1); Glucose 97 mg/dL (70-99); HDL Cholesterol 68 mg/dL (40-60); HEMOLYSIS < 15 (0-50); LDL Cholesterol Calculated 113 mg/dL (<100); Potassium 4.2 mmol/L (3.4-5.1); Sodium 136 mmol/L (137-145); Total Protein 7.4 g/dL (6.3-8.2); Triglycerides 50 mg/dL (35-150)
[2025-04-16 19:47] LABS: TSH w/ Reflex to FT4 2.18 uIU/mL (0.47-4.68)
== END ==
PROVIDERS: PCP Physician Assistant Medical; Visit Provider Physician Assistant Medical
DX: K74.69 Other cirrhosis of liver (principal); K76.9 Liver disease, unspecified; D50.0 Iron deficiency anemia secondary to blood loss (chronic); L65.9 Nonscarring hair loss, unspecified; E78.5 Hyperlipidemia, unspecified; I10 Essential (primary) hypertension
CPT/HCPCS: 80053; 80061; 82306; 82977; 84443; 85025; 85610; 85730

== ENCOUNTER → 2025-07-25 14:27 | Outpatient (CLI) | payer MEDICARE, SELFPAY ==
[2025-07-25 19:24] LABS: Add Manual Diff / Slide Review NO; Hematocrit 42.5 % (36-46); Hemoglobin 14.7 g/dL (12.0-16.0); Lymphocytes Absolute Auto 1400 /uL (1100-4500); Mean Corpuscular HGB Conc 34.5 % (30-36); Mean Corpuscular Hemoglobin 30.3 PG (26-34); Mean Corpuscular Volume 87.8 fL (80-100); Platelet Count 140 X10^3/uL (150-400)
[2025-07-25 19:37] LABS: Alanine Aminotransferase 26 IU/L (<35); Albumin 4.5 g/dL (3.5-5.0); Albumin Globulin Ratio 1.5 (1.0-2.8); Alkaline Phosphatase 62 U/L (38-126); Blood Urea Nitrogen 11 mg/dL (7-17); Calcium 9.3 mg/dL (8.4-10.2); Carbon Dioxide 28 mmol/L (22-32); Chloride 99 mmol/L (98-107); Estimated Glomerular Filt Rate > 60 mL/min (>60); Globulin 3.0 g/dL (1.7-4.1); Glucose 99 mg/dL (70-99); HEMOLYSIS < 15 (0-50); Potassium 3.8 mmol/L (3.4-5.1); Sodium 134 mmol/L (137-145); Total Protein 7.5 g/dL (6.3-8.2)
[2025-07-25 19:46] LABS: INR 1.1 (0.9-1.3); Prothrombin Time 12.5 SECONDS (9.4-12.5)
[2025-07-25 19:53] LABS: Vitamin D 25 Hydroxy (D3) 57.6 ng/mL (30.0-100.0)
[2025-07-25 19:54] LABS: PTT Partial Thromboplastin Tim 33 SECONDS (25.1-36.5)
[2025-07-25 20:38] LABS: Fibrinogen 432 mg/dL (238-498)
== END ==
PROVIDERS: PCP Physician Assistant Medical; Visit Provider Physician Assistant Medical
DX: K76.9 Liver disease, unspecified (principal); E55.9 Vitamin D deficiency, unspecified; K74.69 Other cirrhosis of liver; R79.89 Other specified abnormal findings of blood chemistry; I10 Essential (primary) hypertension
CPT/HCPCS: 80053; 82105; 82306; 85025; 85384; 85610; 85730